=== PATIENT | female | born 1970 | race Caucasian/White ===

== ENCOUNTER 2017-07-08 14:59 | Emergency (ER) | payer MEDICAID, OTHER ==
[2017-07-08 15:40] VITALS: BP 142/68
--- NOTE | 2017-07-08 17:43 | UC ---
Loly Poon Rebecca, scribed for Otis Rosenberg MD on 07/08/17 at 1612 . Respiratory Complaint HPI - HPI Summary HPI Summary: Pt is a 46 y/o F who presents to [facility] c/o productive cough and chest congestion for 3 days. Cough brings up yellow sputum. Sx aggravated and alleviated by nothing. Additionally c/o ear pain secondary to cough and FABIAN that is currently moderate, ranked 6/10 and characterized as sharp. Denies rhinorrhea and sinus congestion. Pt reports she is prone to epiglottitis for which she has never been hospitalized and is usually treated with steroids and is unsure of the Abx. - History of Current Complaint Chief Complaint: UCRespiratory Stated Complaint: COLD,COUGH,ST Hx Obtained From: Patient Hx Last Menstrual Period: SEVERAL YEARS Onset/Duration: Lasting Days - 3 days, Still Present Severity Currently: Moderate Pain Intensity: 6 Pain Scale Used: 0-10 Numeric Character: Cough: Productive, Sputum Description: - Yellow Aggravating Factors: Nothing Alleviating Factors: Nothing Associated Signs And Symptoms: Negative: Nasal Congestion - Allergies/Home Medications Allergies/Adverse Reactions: Allergies Allergy/AdvReac Type Severity Reaction Status Date / Time Codeine AdvReac Intermediate Itching Verified 07/08/17 15:41 Home Medications: Home Medications PARoxetine HCL TAB* [Paxil TAB*] 3 tab PO DAILY 07/08/17 [History Confirmed 09/23] ValACYclovir (*) [Valtrex 500 mg (*)] 500 mg PO DAILY 07/08/17 [History Confirmed 07/08/17] PMH/Surg Hx/FS Hx/Imm Hx - Additional Past Medical History Additional PMH: NEGATIVE PMHx: DM, HTN, CAD Respiratory History: Asthma - Surgical History Surgical History: Yes Surgery Procedure, Year, and Place: T&A. Hysterectomy- d/t HPV. appendectomy Tympanostomy November 2012. gastric sleeve - Family History Known Family History: Positive: Other - Asthma (daughter) - Social History Alcohol Use: Occasionally Substance Use Type: None Smoking Status (MU): Light Every Day Tobacco Smoker Type: Cigarettes Amount Used/How Often: 1/4 ppd - Immunization History Most Recent Tetanus Shot: UTD Review of Systems Constitutional: Negative Skin: Negative Eyes: Negative ENT: Ear Ache Respiratory: Cough, Other - Chest congestion Cardiovascular: Negative Gastrointestinal: Negative Genitourinary: Negative Motor: Negative Neurovascular: Negative Musculoskeletal: Negative Neurological: Headache Psychological: Negative All Other Systems Reviewed And Are Negative: Yes - Comments Additional Review of Systems Comments: NEGATIVE: Rhinorrhea and sinus congestion Physical Exam Triage Information Reviewed: Yes Vital Signs: Initial Vital Signs Temp 98.5 F 07/08/17 15:36 Pulse 77 07/08/17 15:36 Resp 17 07/08/17 15:36 BP 142/68 07/08/17 15:36 Pulse Ox 100 07/08/17 15:36 Vital Signs Reviewed: Yes - Additional Comments General: well-appearing, no pain distress Skin: warm, color reflects adequate perfusion, dry Head: normal Eyes: EOMI, ARIANNA ENT: TM normal, some rhinorrhea, posterior pharynx is mildly erythematous Neck: supple,anterior cervical lymphadenopathy Respiratory: scattered wheezes, breath sounds present Cardiovascular: RRR Musculoskeletal: normal, strength/ROM intact Neurological: normal, sensory/motor intact, A&O x3 Psychological: affect/mood appropriate UC Diagnostic Evaluation - Laboratory O2 Sat by Pulse Oximetry: 100 Respiratory Course/Dx - Course Course Of Treatment: Pt medications reviewed. Allergies noted. - Differential Dx/Diagnosis Provider Diagnoses: BRONCHITIS/COPD EXACERBATION Discharge - Discharge Plan Condition: Stable Disposition: HOME Prescriptions: Azithromyxin ANTONIO (NF) [Z-Antonio (Zithromax) 250 mg tabs #6] 2 tab PO .TODAY, THEN 1 DAILY #6 tab Benzonatate CAP* [Tessalon 100 MG CAP*] 100 mg PO TID PRN #15 cap PRN Reason: Cough predniSONE TAB* [Deltasone TAB*] 40 mg PO DAILY #10 tab Patient Education Materials: Acute Bronchitis (ED), COPD (Chronic Obstructive Pulmonary Disease) (ED) Referrals: Haylee Kim MD [Primary Care Provider] - Additional Instructions: FOLLOW UP WITH YOUR DOCTOR. GET RECHECKED FOR ANY WORSENING OF YOUR CONDITION OR QUESTIONS OR CONCERNS. The documentation as recorded by the Loly freeman Rebecca accurately reflects the service I personally performed and the decisions made by me, Otis Rosenberg MD.
== END 2017-07-08 16:38 | disposition home or self-care (01) ==
LOC: UCEAST 14:59
DX: J44.1 Chronic obstructive pulmonary disease with (acute) exacerbation (principal); Z90.710 Acquired absence of both cervix and uterus; Z98.84 Bariatric surgery status; Z88.5 Allergy status to narcotic agent; F17.210 Nicotine dependence, cigarettes, uncomplicated
CPT/HCPCS: 99212; G0463

== ENCOUNTER 2017-09-06 11:06 | Emergency (ER) | payer OTHER ==
--- NOTE | 2017-09-06 12:52 | UC ---
Lower Extremity/Ankle HPI - HPI Summary HPI Summary: 46 year old female presents with companies of left ankle pain post fall. - History of Current Complaint Stated Complaint: ankle injury Time Seen by Provider: 09/06/17 12:52 Hx Obtained From: Patient Hx Last Menstrual Period: SEVERAL YEARS Onset/Duration: Sudden Onset Severity Initially: Moderate Severity Currently: Moderate Aggravating Factor(s): Standing - Allergies/Home Medications Allergies/Adverse Reactions: Allergies Allergy/AdvReac Type Severity Reaction Status Date / Time Codeine AdvReac Intermediate Itching Verified 09/06/17 13:16 Home Medications: Home Medications Acetaminophen [Tylenol] 1,000 mg PO Q4HR PRN 09/06/17 [History Confirmed ] Ibuprofen [Ibuprofen 200 MG] 800 mg PO BID 09/06/17 [History Confirmed 09/06/17] PMH/Surg Hx/FS Hx/Imm Hx Previously Healthy: Yes - Surgical History Surgical History: Yes Surgery Procedure, Year, and Place: T&A. Hysterectomy- d/t HPV. appendectomy Tympanostomy November 2012. gastric sleeve - Family History Known Family History: Positive: None, Other - Asthma (daughter) - Social History Alcohol Use: Occasionally Substance Use Type: None Smoking Status (MU): Light Every Day Tobacco Smoker Type: Cigarettes Amount Used/How Often: 1/4 ppd - Immunization History Most Recent Tetanus Shot: UTD Review of Systems Constitutional: Negative Skin: Negative Eyes: Negative ENT: Negative Respiratory: Negative Cardiovascular: Negative Gastrointestinal: Negative Genitourinary: Negative Motor: Negative Neurovascular: Negative Musculoskeletal: Other: - left ankle pain Neurological: Negative Psychological: Negative All Other Systems Reviewed And Are Negative: Yes Physical Exam Triage Information Reviewed: Yes Eye Exam: Normal ENT Exam: Normal Dental Exam: Normal Neck exam: Normal Neck: Positive: 1 Respiratory Exam: Normal Cardiovascular Exam: Normal Abdominal Exam: Normal Musculoskeletal: Positive: Other: - left ankle pain/sprain Neurological Exam: Normal Psychological Exam: Normal Skin Exam: Normal Lower Extremity Course/Dx - Differential Dx/Diagnosis Provider Diagnoses: left ankle sprain/pain Discharge - Discharge Plan Condition: Stable Disposition: HOME Prescriptions: Meloxicam [Mobic] 7.5 mg PO BID #30 tab Patient Education Materials: Ankle Sprain (ED) Referrals: Haylee Kim MD [Primary Care Provider] - Man New MD [Medical Doctor] -
[2017-09-06 13:16] VITALS: BP 146/84
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
== END 2017-09-06 14:20 | disposition home or self-care (01) ==
LOC: UCEAST 11:06
DX: S93.402A Sprain of unspecified ligament of left ankle, initial encounter (principal); W19.XXXA Unspecified fall, initial encounter; Y93.9 Activity, unspecified; Y92.9 Unspecified place or not applicable; Z88.5 Allergy status to narcotic agent; F17.210 Nicotine dependence, cigarettes, uncomplicated
CPT/HCPCS: 99213; G0463

== ENCOUNTER 2019-05-28 12:04 | Emergency (ER) | payer BC, MEDICAID ==
[2019-05-28 12:18] VITALS: BP 139/97
--- NOTE | 2019-05-28 12:36 | UC ---
Throat Pain/Nasal Mook HPI - HPI Summary HPI Summary: sore throat on/off for 1 month has been on 3 courses of antibiotics, amoxicillin, clinda then Augmentin--no fevers- some nasal congestion, cough - History of Current Complaint Chief Complaint: UCRespiratory Stated Complaint: THROAT PAIN Time Seen by Provider: 05/28/19 12:16 Hx Obtained From: Patient Hx Last Menstrual Period: SEVERAL YEARS ?: No Onset/Duration: Gradual Onset, Lasting Weeks, Still Present Pain Intensity: 3 Pain Scale Used: 0-10 Numeric Cough: Nonproductive Associated Signs & Symptoms: Positive: Nasal Discharge - Allergies/Home Medications Allergies/Adverse Reactions: Allergies Allergy/AdvReac Type Severity Reaction Status Date / Time codeine Allergy Itching Verified 05/28/19 12:18 Home Medications: Home Medications Atorvastatin* [Lipitor 20 MG*] 1 tab PO DAILY 05/28/19 [History Confirmed ] PMH/Surg Hx/FS Hx/Imm Hx Endocrine History: Dyslipidemia - Surgical History Surgical History: Yes Surgery Procedure, Year, and Place: T&A. Hysterectomy- d/t HPV. appendectomy Tympanostomy November 2012. gastric sleeve - Family History Known Family History: Positive: None, Other - Asthma (daughter) - Social History Occupation: Works From/At Home Lives: With Family Alcohol Use: Occasionally Substance Use Type: Prescribed Smoking Status (MU): Light Every Day Tobacco Smoker Type: Cigarettes Amount Used/How Often: 1/4 ppd Have You Smoked in the Last Year: Yes - Immunization History Most Recent Influenza Vaccination: delined Most Recent Tetanus Shot: UTD Review of Systems All Other Systems Reviewed And Are Negative: Yes Constitutional: Positive: Negative Skin: Positive: Negative Eyes: Positive: Negative ENT: Positive: Sore Throat, Nasal Discharge, Sinus Congestion Respiratory: Positive: Cough Cardiovascular: Positive: Negative Gastrointestinal: Positive: Negative Genitourinary: Positive: Negative Motor: Positive: Negative Neurovascular: Positive: Negative Musculoskeletal: Positive: Negative Neurological: Positive: Negative Psychological: Positive: Negative Is Patient Immunocompromised?: No Physical Exam Triage Information Reviewed: Yes Appearance: Well-Appearing, No Pain Distress, Well-Nourished Vital Signs: Initial Vital Signs Temp 97.8 F 05/28/19 12:15 Pulse 99 05/28/19 12:15 Resp 16 05/28/19 12:15 BP 139/97 05/28/19 12:15 Pulse Ox 99 05/28/19 12:15 Vital Signs Reviewed: Yes Eye Exam: Normal Eyes: Positive: Conjunctiva Clear ENT Exam: Normal ENT: Positive: Normal ENT inspection, Hearing grossly normal, Pharyngeal erythema, TMs normal, Other. Negative: Tonsillar swelling, Trismus, Muffled voice, Hoarse voice, Dental tenderness, Sinus tenderness Dental Exam: Normal Neck exam: Normal Neck: Positive: Supple, Nontender, No Lymphadenopathy Respiratory Exam: Normal Respiratory: Positive: Chest non-tender, Lungs clear, Normal breath sounds, No respiratory distress, No accessory muscle use Cardiovascular Exam: Normal Cardiovascular: Positive: RRR, No Murmur, Pulses Normal, Brisk Capillary Refill Musculoskeletal Exam: Normal Musculoskeletal: Positive: Strength Intact, ROM Intact, No Edema Neurological Exam: Normal Neurological: Positive: Alert, Muscle Tone Normal Psychological Exam: Normal Skin Exam: Normal Diagnostics - Laboratory Lab Results: RST (-) Throat Pain/Nasal Course/Dx - Course Course Of Treatment: will send swab for throat culture,, treat with zyrtec, flonase and phenol spray- --patient will follow with pcp this week - Differential Dx/Diagnosis Provider Diagnosis: Sore throat Discharge ED - Sign-Out/Discharge Documenting (check all that apply): Patient Departure All imaging exams completed and their final reports reviewed: No Studies - Discharge Plan Condition: Stable Disposition: HOME Prescriptions: Cetirizine* [ZyrTEC 10 MG TAB*] 10 mg PO DAILY #15 tab Fluticasone NASAL SPRAY 50MCG* [Flonase NASAL SPRAY 50MCG*] 2 spray BOTH NARES DAILY #1 btl Patient Education Materials: Benzocaine/Menthol (By mouth), Pharyngitis (ED) Referrals: Haylee Kim MD [Primary Care Provider] - 1 Week - Billing Disposition and Condition Condition: STABLE Disposition: Home
== END 2019-05-28 12:50 | disposition home or self-care (01) ==
LOC: UCEAST 12:04
DX: J02.9 Acute pharyngitis, unspecified (principal); F17.210 Nicotine dependence, cigarettes, uncomplicated; Z88.5 Allergy status to narcotic agent
CPT/HCPCS: 87070; 87077; 87651; 99212; G0463

== ENCOUNTER 2019-11-09 07:45 | Emergency (ER) | payer BC, MEDICAID ==
--- OUTSIDE RECORDS SUMMARY | 2019-11-09 07:50 | XMS REPORT | Summary of Care ---
:1970 Author Organization [facility] Address [address] [address] Care Team Providers Name Role Phone Haylee Pina MD Primary Care Provider Reason for Referral Refer to Department Only (Routine) Status Reason Specialty Diagnoses / Referred By Referred To Procedures Contact Contact Pending Review Physical Therapy Diagnoses Carpal tunnel syndrome, [place] [address] [place] [address] [address] [place] [address] Scheduling Instructions Nerve gliding and bilateral splints for carpal tunnel Reason for Visit Reason Comments Post-op Follow-up F/U 1st dorsal compartment release & cyst removal. Pain currently 09/16. Overall feels she is doing well. Encounter Details Date Type Department Care Team Description 10/13/2019 Office Visit [facility] - Gerald Peterson, Carpal tunnel Mary COLLINS syndrome, unspecified [address] [facility] [address] [place] [address] Anatoly laterality (Primary [address] Dx) [address] [phone] [id number] [phone] Allergies Active Allergy Reactions Severity Noted Date Comments Codeine Rash High 09/15/2019 Hydrocodone Hives High 09/15/2019 documented as of this encounter (statuses as of 10/13/2019) Medications Medication Sig Dispensed Refills Start Date End Date Status albuterol HFA INHALE 2 PUFFS BY 0 03/09/2019 Active (VENTOLIN) 108 (90 MOUTH FOUR TIMES A Base) MCG/ACT DAY NEEDED FOR Inhalation Aero Soln COUGH, WHEEZE ALPRAZolam (XANAX) 0.5 TAKE 1 TABLET BY 0 02/07/2019 Active MG Oral Tab MOUTH TWO TIMES DAILY NEEDED FOR ANXIETY MAXIMUM DAILY DOSE OF 2 PER DAY atorvastatin (LIPITOR) Take 20 mg by 0 10/05/2018 Active 20 MG Oral Tab mouth. Biotin 10 MG Oral Cap biotin 10,000 mcg capsule 0 Active Take by oral route. cyclobenzaprine TAKE 1/2 TO 1 0 08/25/2018 Active (FLEXERIL) 10 MG Oral TABLET BY MOUTH Tab NIGHTLY NEEDED FOR MUSCLE SPASMS MAXIMUM DAILY DOSE 2 Doxycycline TAKE 1 TABLET BY 0 08/10/2019 Active Monohydrate 100 MG MOUTH TWO TIMES Oral Tab DAILY FOR 45 DAYS hyoscyamine (LEVSIN) hyoscyamine 0 Active 0.125 MG Oral Tab sulfate 0.125 mg tablet ibuprofen (MOTRIN) 800 TAKE ONE TABLET BY 0 10/07/2018 Active MG Oral Tab MOUTH EVERY 6 HOURS UP TO THREE TIMES DAILY WITH FOOD NEEDED Levocetirizine Take 5 mg by 0 Active Dihydrochloride 5 MG mouth. Oral Tab metoprolol succinate Take 25 mg by 0 08/03/2019 Active (TOPROL XL) 25 MG Oral mouth. TABLET SR 24 HR paroxetine (PAXIL) 20 paroxetine 20 mg 0 Active MG Oral Tab tablet paroxetine (PAXIL) 40 TAKE 1 AND 1/2 0 08/11/2019 Active MG Oral Tab TABLETS BY MOUTH ONE TIME DAILY MAXIMUM DAILY DOSE 1 AND 1/2 TABLET valacyclovir (VALTREX) TAKE 1 TABLET BY 0 06/30/2019 Active 500 MG Oral Tab MOUTH EVERY DAY FOR SUPPRESSIVE THERAPY Multiple Vitamin Take by mouth. 0 Active (MULTI-VITAMIN DAILY PO) celeCOXIB (CELEBREX) Take 100 mg by 0 Active 100 MG Oral Cap mouth DAILY. methylPREDNISolone, Take as directed 21 Tab 0 10/13/2019 Active dose-angelo, (MEDROL) 4 MG Oral Tablet Therapy Pack documented as of this encounter (statuses as of 10/13/2019) Active Problems Problem Noted Date Radial styloid tenosynovitis 09/20/2019 Overview: Added automatically from request for surgery [id number] documented as of this encounter (statuses as of 10/13/2019) Social History Tobacco Use Types Packs/Day Years Used Date Never Smoker Smokeless Tobacco: Never Used Tobacco Cessation: Counseling Given: No Alcohol Use Drinks/Week oz/Week Comments Yes Alcohol Habits Answer Date Recorded How often do you have a drink containing alcohol? Monthly or less 09/21/2019 How many drinks containing alcohol do you have on a Not asked typical day when you are drinking? How often do you have six or more drinks on one Not asked occasion? Sex Assigned at Date Recorded Not on file Job Start Date Occupation Industry Not on file Not on file Not on file Travel History Travel Start Travel End No recent travel history available. documented as of this encounter Last Filed Vital Signs Vital Sign Reading Time Taken Comments Blood Pressure 150/94 10/13/2019 9:04 AM patient out of BP EST meds. Picking up today. Pulse 86 10/13/2019 9:04 AM EST Temperature - - Respiratory Rate - - Oxygen Saturation - - Inhaled Oxygen - - Concentration Weight 102.1 kg (225 lb) 10/13/2019 9:04 AM EST Height 165.1 cm (5' 5") 10/13/2019 9:04 AM EST Body Mass Index 37.44 10/13/2019 9:04 AM EST documented in this encounter Progress Notes Gerald Peterson MD - 10/13/2019 9:15 AM EST Name: Isabel Mantilla : 1970 Date of service: 10/13/2019 Chief Complaint Patient presents with Post-op Follow-up F/U 1st dorsal compartment release & cyst removal. Pain currently /10. Overall feels she is doing well. HPI: Isabel Mantilla is a 49-y.o. y/o female, who presents at the request of Gerald Peterson for evaluation. Status post right de Quervain's tenosynovitis debridement first dorsal compartment release.Patient has no longer any of the pain that she had before surgery. She does have some mild carpal tunnel on both sides PAST MEDICAL HISTORY: She has a past medical history of Asthma in adult, At high risk for tick borne illness, and High blood pressure. PAST SURGICAL HISTORY: She has a past surgical history that includes tonsillectomy; appendectomy; hysterectomy, abdominal; and pr gastroplasty, obesity,vert band. MEDICATIONS: Current Outpatient Medications: albuterol HFA (VENTOLIN) 108 (90 Base) MCG/ACT Inhalation Aero Soln, INHALE 2 PUFFS BY MOUTHFOUR TIMES A DAY NEEDED FOR COUGH, WHEEZE, Disp: , Rfl : ALPRAZolam (XANAX) 0.5 MG Oral Tab, TAKE 1 TABLET BY MOUTH TWO TIMES DAILY NEEDED FOR ANXIETY MAXIMUM DAILY DOSE OF 2 PER DAY, Disp: , Rfl: atorvastatin (LIPITOR) 20 MG Oral Tab, Take 20 mg by mouth., Disp: , Rfl : Biotin 10 MG Oral Cap, biotin 10,000 mcg capsule Take by oral route., Disp: , Rfl: celeCOXIB (CELEBREX) 100 MG Oral Cap, Take 100 mg by mouth DAILY., Disp : , Rfl: cyclobenzaprine (FLEXERIL) 10 MG Oral Tab, TAKE 1/2 TO 1 TABLET BY MOUTH NIGHTLY NEEDED FOR MUSCLE SPASMS MAXIMUM DAILY DOSE 2, Disp: , Rfl: Doxycycline Monohydrate 100 MG Oral Tab, TAKE 1 TABLET BY MOUTH TWO TIMES DAILY FOR 45 DAYS,Disp: , Rfl: hyoscyamine (LEVSIN) 0.125 MG Oral Tab, hyoscyamine sulfate 0.125 mg tablet, Disp: , Rfl: ibuprofen (MOTRIN) 800 MG Oral Tab, TAKE ONE TABLET BY MOUTH EVERY 6 HOURS UP TO THREE TIMESDAILY WITH FOOD NEEDED, Disp: , Rfl: Levocetirizine Dihydrochloride 5 MG Oral Tab, Take 5 mg by mouth., Disp : , Rfl: metoprolol succinate (TOPROL XL) 25 MG Oral TABLET SR 24 HR, Take 25 mg by mouth., Disp: , Rfl: Multiple Vitamin (MULTI-VITAMIN DAILY PO), Take by mouth., Disp: , Rfl: paroxetine (PAXIL) 20 MG Oral Tab, paroxetine 20 mg tablet, Disp: , Rfl: paroxetine (PAXIL) 40 MG Oral Tab, TAKE 1 AND 1/2 TABLETS BY MOUTH ONE TIME DAILY MAXIMUM DAILY DOSE 1 AND 1/2 TABLET, Disp: , Rfl: valacyclovir (VALTREX) 500 MG Oral Tab, TAKE 1 TABLET BY MOUTH EVERY DAY FOR SUPPRESSIVE THERAPY, Disp: , Rfl: ALLERGIES: She is allergic to codeine and hydrocodone. SOCIAL HISTORY: She reports that she has never smoked. She has never used smokeless tobacco. She reports current alcohol use. She reports that she does not use drugs. FAMILY HISTORY: family history is not on file. ROS: Nursing Notes: Senait Graves LPN 10/13/2019 9:05 AM Signed NAME: Isabel Mantilla : 1970 DATE OF SERVICE: 10/13/2019 Chief Complaint Patient presents with Post-op Follow-up F/U 1st dorsal compartment release & cyst removal. Pain currently 09/16. Overall feels she is doing well. BP (!) 150/94 Comment: patient out of BP meds. Picking up today. | Pulse 86 | Ht 5' 5" (1.651 m) |Wt 225 lb (102.1 kg) | BMI 37.44 kg/m CONSTITUTIONAL: negative. HEENT: negative. EYES: negative RESPIRATORY: negative. CARDIOVASCULAR: negative. GASTROINTESTINAL: negative. GENITOURINARY: negative. INTEGUMENT/BREAST: negative. HEMATOLOGIC/LYMPHATIC: negative. MUSCULOSKELETAL: Negative. NEUROLOGICAL: negative. BEHAVIORAL/PSYCH: negative. ENDOCRINE: negative. ALLERGIC/IMMUNOLOGIC: Negative. Body mass index is 37.44 kg/m. - Patient Educated. AUTHOR: Senait Graves LPN 10/13/2019 09:05 I reviewed the above and have made changes as appropriate. Physical Exam: Vitals: BP 150/94 Pulse 86 Ht 5' 5" (1.651 m) Wt 225 lb (102.1 kg) BMI 37.44 kg/m2 Gen: NAD, A&Ox3 SKIN/PALPATION: Normal rugal patterns, sweat, turgor, and temperature. Cuticles , nails, nail curvature, and pulp bulk are essentially normal in appearance. No skin changes. SWELLING: none WARMTH: no warmth DEFORMITY: no gross deformity or malalignment NEUROLOGICAL EXAM: Sensation intact to light touch. VASCULAR EXAM: Capillary refill is <2 seconds. Suture line is intact sutures are in place. Sensation is intact. Provocative test for carpal tunnel are positive on both sides Imaging & Tests: Assessment: ICD-9-CM ICD-10-CM 1. Carpal tunnel syndrome, unspecified laterality 354.0 G56.00 Status post de Quervain's release. Bilateral carpal tunnel mild Plan & Discussion: --Sutures out today Medrol Dosepak Therapy for nerve gliding exercises I will see her back in 4 weeks to evaluate her carpal tunnel. Gerald Peterson MD Hand Surgery 10/13/2019 documented in this encounter Plan of Treatment Name Type Priority Associated Diagnoses Order Schedule REFER TO PHYSICAL Referral Routine Carpal tunnel syndrome, 99 Occurrences starting THERAPY / REHAB unspecified laterality 10/13/2019 until 10/13/2020 Health Maintenance Due Date Last Done Comments DTaP/Tdap/Td Vaccines (1 - Tdap) 1980 DEPRESSION SCREENING 1981 HIV SCREENING 1984 DIABETES SCREENING 1987 PAP SMEAR 1990 MAMMOGRAM (SCREENING) 2009 INFLUENZA VACCINE (#1) 2019 Colonoscopy 2019 ZOSTER IMMUNIZATION SERIES (1 of 2019 2) LIPID DISORDER SCREENING 09/15/2024 09/15/2019 HEPATITIS A IMMUNIZATION SERIES Aged Out No longer eligible based on patient's age to complete this topic HPV IMMUNIZATION SERIES Aged Out No longer eligible based on patient's age to complete this topic MENINGOCOCCAL VACCINE IMM Aged Out No longer eligible based on patient's age to complete this topic PNEUMOCOCCAL 0-64 YRS Aged Out No longer eligible based on patient's age to complete this topic documented as of this encounter Results Not on filedocumented in this encounter Visit Diagnoses Diagnosis Carpal tunnel syndrome, unspecified laterality documented in this encounter Insurance Payer Benefit Plan / Subscriber ID Effective Dates Phone Address Type Group [facility] xxxxxxxxx 2019-Present [place] xxxxxxxx 2019-Present Medicaid [place] MED[place] documented as of this encounter
--- OUTSIDE RECORDS SUMMARY | 2019-11-09 07:50 | XMS REPORT | Continuity of Care Document ---
:1970 External Reference #:[id number] Author Name Samaria Dawson RN MS [employer] CLERK Address [address] [place] [address] Problems Active Problems Provider Date Obstructive sleep apnea syndrome Franky Herzog PA Onset: 09/16/2019 Note: on CPAP per pulm Benign essential hypertension Onset: 02/11/2008 Mild recurrent major depression Madisyn Andrade MD Onset: 03/02/2013 Mixed hyperlipidemia Madisyn Andrade MD Onset: 03/02/2013 Myalgia & Myositis Unspecified Madisyn Andrade MD Onset: 03/02/2013 Obesity Madisyn Andrade MD Onset: 03/02/2013 Abnormal vaginal Papanicolaou smear Franky Herzog PA Onset: 11/29/2018 Note: s/p KENIA BSO due to cervical dysplasia and endometriosis ~2003 Hepatitis C screening Franky Herzog PA Onset: 03/22/2019 Note: Neg 03/2019 HIV negative Franky Herzog PA Onset: 03/22/2019 Note: 03/2019 Human ehrlichiosis Franky Herzog PA Onset: 08/01/2019 Note: IgG+ 07/2019 -- Tx. Social History Type Date Description Comments Sex Unknown Tobacco Use Start: Unknown End: Former Cigarette Smoker X 16 years, quitted Unknown 1/2 Pack Daily in 2013 ETOH Use Occasionally consumes alcohol Recreational Drug Use Denies Drug Use Tobacco Use Start: Unknown Patient is a current smoker, smokes every day Smoking Status Reviewed: 09/23/19 Patient is a current smoker, smokes every day Allergies, Adverse Reactions, Alerts Active Allergies Reaction Severity Comments Date Codeine ITCHING 09/09/2011 Medications Active Medications SIG Qnty Indications Ordering Date Provider Metoprolol Succinate Take 1 Tablet By 30tabs I10 [facility], 06/06/2019 ER Mouth Every Day Haylee Rodriguez MD 25mg Tablets ER 24HR Levocetirizine 1 by mouth every 90tabs J30.9 [facility], 05/30/2019 Dihydrochloride night Haylee Rodriguez MD 5mg Tablets Valacyclovir HCL take 1 tablet by 90tabs B00.1 [facility], 03/28/2019 500mg mouth every day for Haylee Rodriguez MD Tablets suppressive therapy Atorvastatin Calcium 1 by mouth every 90tabs E78.2 [facility], 10/04/2018 day Haylee Rodriguez MD 20mg Tablets Triamcinolone 1 sprays each 16.500gm J30.9 [facility], 08/23/2018 Acetonide nostril twice a day Haylee Rodriguez MD 55mcg/Act Aerosol Cyclobenzaprine HCL Take 1/2 - 1 Tablet 60tabs G89.4 [facility], 01/07/2018 By Mouth Up To Two Haylee Rodriguez MD 10mg Tablets Times Daily as Needed For Muscle Spasms, Maximum Daily Dose Of 2 Per Day TENS G89.4 [facility], 08/13/2015 Haylee Rodriguez MD Ventolin HFA 2 p four times a 18gm J20.9 [facility], 07/11/2014 day as needed Haylee Rodriguez MD 108(90Base) mcg/Act cough, wheeze Aerosol Epipen 2-Antonio 1 shot 1units T78.40xA [facility], 03/02/2013 intramuscular to Haylee Rodriguez MD 0.3mg/0.3ML Solution thigh in case of Auto-Inject analphylasis as needed Celebrex 1 by mouth twice a Unknown 100mg Capsules day Alprazolam prn F33.0 Unknown 0.5mg Tablets Paroxetine HCL 1.5 by mouth every F33.0 Unknown 40mg day Tablets History Medications Doxycycline 1 by mouth twice 90tabs [facility], 08/01/2019 - Monohydrate a day for 45day Haylee Rodriguez MD 09/15/2019 100mg Tablets Vitamin D3 1 by mouth every 90tabs [facility], 07/28/2019 - 5000Unit day Haylee Rodriguez MD 09/23/2019 Tablets Pregabalin 1 by mouth twice 60caps G89.4 [facility], 07/27/2019 - 25mg a day Haylee Rodriguez MD 09/23/2019 Capsules Chantix Starting take as packet 1pack F17.210 [facility], 05/30/2019 - Month Antonio directs. [then Haylee Rodriguez MD 06/29/2019 0.5mg X 11 to continuing & 1 mg X 42 Tablets month pack] Chantix Continuing 1 tablet per oral 60tabs F17.210 Silvana, 05/30/2019 - Month Antonio twice daily Haylee Rodriguez MD 09/23/2019 1mg Tablets Amoxicillin/Clavulan 1 by mouth every 20tabs W55.01x Silvana, 05/11/2019 - ate Potassium 12 hours A Haylee Rodriguez MD 05/21/2019 875-125mg Tablets Amlodipine Take 1 Capsule By PatriciacapFranky Beal, 03/31/2019 - Besylate/Benazepril Mouth Every Day PA 03/31/2019 Hydrochloride 5-20mg Capsules Nicotine Mini 1 po q 2hrs prn 162units F17.210 Silvana, 03/28/2019 - 4mg cravings Haylee Rodriguez MD 05/30/2019 Lozenges Immunizations CPT Code Status Date Vaccine Lot # [id number] Given 06/06/2019 Influenza Vac, Quadrivalent, Split, 0.5mL Dosage, [id number] Im Use 44490 Given 05/11/2019 Tdap (Adacel) Ages 7 And Above Only [id number] 81788 Given 06/23/2018 Influenza Vac, Quadrivalent, Split, 0.5mL Dosage, [id number] Im Use 41478 Given 05/16/2016 Influenza Vac, Quadrivalent, Split, 0.5mL Dosage, [id number] Im Use [id number] Given 06/09/2014 Fluzone Trivalent Immunization [id number] Given 07/22/2011 Tdap (Adacel) Ages 7 And Above Only [id number] 83663 Given 07/18/2008 Afluria Or Fluvirin Flu Vac Intramuscular [id number] Vital Signs Date Vital Result Comment 09/23/2019 10:58am Weight 231.00 lb Heart Rate 70 /min BP Systolic 124 mmHg BP Diastolic 82 mmHg Height 65.5 inches 5'5.50" BMI (Body Mass Index) 37.9 kg/m2 08/26/2019 1:06pm Weight 225.00 lb Heart Rate 82 /min BP Systolic 135 mmHg BP Diastolic 76 mmHg Height 65.5 inches 5'5.50" BMI (Body Mass Index) 36.9 kg/m2 Results Test Acquired Date Facility Test Result H/L Range Note Laboratory test 07/27/2019 [facility] Vitamin D 25 32 ng/mL 30-100 1 finding Hydroxy Babesia M AB Igg Igm 07/27/2019 [facility] Babesia Microti < 1:16 2 -RL Igg Babesia Microti Igm <1:20 3 Hga Antibodies,IgG and IgM -RL 07/27/2019 [facility] Hga AB Igg <1:80 4 Hga AB Igm < 1:16 5 E Chaffeensis Abs 07/27/2019 [facility] E Chaffeensis Igg 1:128 6 E Chaffeensis Igm < 1:16 7 Z#Lyme Confirmation Abs Blood 07/27/2019 [facility] Lyme Igg B Matthieu Negative 8 Lyme Igm B Matthieu Negative 9 Comprehensive Met Panel-[facility] 06/06/2019 [facility] Sodium 145 mmol/L 135- 146 10 Potassium 4.6 mmol/L 3.5-5.2 Chloride# 106 mmol/L 97-110 11 Carbon Dioxide 28 mmol/L 24-34 Calcium 9.7 mg/dL 8.5-10.5 12 Glucose 70 mg/dL 70-105 BUN 15 mg/dL 6-26 Creatinine 0.8 mg/dL 0.5-1.4 Total Protein 6.7 g/dL 6.0-8.0 Albumin 4.4 g/dL 3.6-4.9 Globulin 2.3 g/dL 2.0-3.5 A/G Ratio 1.9 Ratio 1.0-2.2 Total Bilirubin 0.4 mg/dL 0.1-1.3 Alkaline Phosphatase 94 U/L 24-140 Alt 30 U/L 3-42 Ast 23 U/L 8-42 Anion Gap 11 mmol/L 5-15 13 Female Egfr 84 >60 14 Male Egfr 103 >60 15 Lipid 06/06/2019 [facility] Cholesterol 181 mg/dL 50-199 Triglycerides 204 mg/dL High 30-200 HDL 62 mg/dL 35-85 16 Chol/ HDL Ratio 2.9 ratio Low 3.7-5.6 VLDL 41 mg/dL High 2-29 LDL (Calc) 78 mg/dL 20-99 17 Laboratory test finding 06/06/2019 [facility] Magnesium 2.1 mg/dL 1.5-2.7 TSH 0.78 uIU/mL 0.35-4.94 HIV Combo By 06/06/2019 [facility] [employer] HIV NON REACTIVE Non Reactive Eia Combo Laboratory test 05/28/2019 [facility] Throat Culture SEE RESULT 18, 19 finding BELOW Laboratory test 05/28/2019 [facility] Rapid Strep Negative Negative 20 finding Molecular 1 Clinical Guidelines for recommended serum 25(OH)Vitamin D Deficient at less than 20 ng/mL Insufficient at 20 to <30 ng/mL Sufficient at 30-100 ng/mL Toxicity at greater than 100 ng/mL 2 < 1:16 Reference range: < 1:16 INTERPRETIVE INFORMATION: Babesia microti Antibody, IgG Less than 1:16 ........ Negative - No significant level of detectable Babesia IgG antibodies. 1:16 .................. Equivocal - Repeat testing in 10-14 days may be helpful. Greater than 1:16 ..... Positive - IgG antibodies to Babesia detected which may indicate a current or previous infection. Test developed and characteristics determined by [facility]. See Compliance Statement A: [email or web address] [employer]/CS 3 <1:20 Reference range: <1:20 INTERPRETIVE INFORMATION: Babesia microti Antibody, IgM Less than 1:20 ........ Negative - No significant level of detectable Babesia IgM antibodies. 1:20 .................. Equivocal - Repeat testing in 10-14 days may be helpful. Greater than 1:20 ..... Positive - IgM antibodies to Babesia detected which may indicate a current or recent infection. Test developed and characteristics determined by [facility]. See Compliance Statement A: [facility]/CS Performed by [facility], [address] [place] [address] [email or web address] [employer], Ortiz Lynn MD, Lab. Director Unless otherwise specified, testing performed by [facility] [address] [place] [id number] 4 <1:80 Reference range: <1:80 INTERPRETIVE INFORMATION: A. phagocytophilum (HGA) Antibody, IgG Less than 1:80 - No significant level of IgG antibodies to A. phagocytophilum detected. Greater than or equal to 1:80 - Suggestive of a recent or past infection with A. phagocytophilum. Test developed and characteristics determined by [facility]. See Compliance Statement B: [facility] 5 < 1:16 Reference range: < 1:16 INTERPRETIVE INFORMATION: A. phagocytophilum (HGA) Antibody, IgM Less than 1:16 - No significant level of IgM antibodies to A. phagocytophilum detected. Greater than or equal to 1:16 - Suggestive of a current or recent infection with A. phagocytophilum. Test developed and characteristics determined by [facility]. See Compliance Statement B: [facility] Performed by [facility], [address] [place] [id number] [email or web address] [employer], Ortiz Lynn MD, Lab. Director Unless otherwise specified, testing performed by [facility] [address] [place] [id number] 6 1:128 Reference range: <1:64 INTERPRETIVE INFORMATION: Ehrlichia Chaffeensis IgG Ab Less than 1:64 ....... Negative: No significant level of Ehrlichia chaffeensis IgG antibody detected. 1:64-1:128 ........... Equivocal: Questionable presence of Ehrlichia chaffeensis IgG antibody detected. Repeat testing in 10-14 days may be helpful. 1:256 or greater ..... Positive: Presence of IgG antibody to Ehrlichia chaffeensis detected, suggestive of current or past infection. Seroconversion between acute and convalescent sera is considered strong evidence of recent infection. The best evidence for infection is a significant change (fourfold difference in titer) on two appropriately timed specimens, where both tests are done in the same laboratory at the same time. Test developed and characteristics determined by [facility]. See Compliance Statement B: [facility]/[facility] 7 < 1:16 Reference range: < 1:16 INTERPRETIVE INFORMATION: Ehrlichia Chaffeensis IgM Ab Less than 1:16 ....... Negative - No significant level of Ehrlichia chaffeensis IgM antibody detected. 1:16 or greater ...... Positive - Presence of IgM antibody to Ehrlichia chaffeensis detected, suggestive of current or recent infection. While the presence of IgM antibodies suggest current or recent infection, low levels of IgM antibodies may occasionally persist for more than 12 months post-infection. A single IgM result should be interpreted with caution. Test developed and characteristics determined by [facility]. See Compliance Statement B: [facility]/ Performed by [facility], [address] [facility] [place] [address] [email or web address] [employer], Ortiz Lynn MD, Lab. Director Unless otherwise specified, testing performed by [facility] [place] [address] 8 Negative Reference range: Negative Band(s) present: 41 kDa (Insufficient number of bands for positive result) INTERPRETIVE INFORMATION: B. burgdorferi IgG Immunoblot For this assay, a positive result is reported when any 5 or more of the following 10 bands are present: 18, 23, 28, 30, 39, 41, 45, 58, 66, or 93 kDa. All other banding patterns are reported as negative. 9 Negative Reference range: Negative Band(s) present: NONE (Insufficient number of bands for positive result) INTERPRETIVE INFORMATION: B. burgdorferi Antibody IgM Immunoblot For this assay, a positive result is reported when any 2 or more of the following bands are present: 23, 39, or 41 kDa. All other banding patterns are reported as negative. Performed by [facility], [address] [facility] [place] [address] [email or web address], Ortiz Lynn MD, Lab. Director Unless otherwise specified, testing performed by [facility] [place] [address] 10 Updated reference range on new analyzer 11 Updated reference range on new analyzer 12 Updated reference range 01-05-2019 13 Updated Reference Range 14 Concerning GFR Guidelines for Americans: Normal function or mild renal disease, if clinically at risk: >/= 60 mL/min Moderately decreased: 30-59 Severely decreased: 15-29 Renal failure: <15 There is reduced accuracy above 60ml/min/1.73 m squared, but the numeric value may be clinically useful in the near 60 range 15 Concerning GFR Guidelines: Normal function or mild renal disease, if clinically at risk: >/= 60 mL/min Moderately decreased: 30-59 Severely decreased: 15-29 Renal failure: <15 There is reduced accuracy above 60ml/min/1.73 m squared, but the numeric value may be clinically useful in the near 60 range Glomerular Filtration Rate (GFR) is estimated based on the CKD-EPI equation, which assumes a steady state for creatinine as recommended by the National Kidney Disease Education Program in conjunction with the National Institutes of Health and the National Kidney Foundation. Clinical conditions in which it may be necessary to measure GFR by using clearance methods include extremes of age and body size, severe malnutrition or obesity, diseases of skeletal muscle, paraplegia or quadriplegia, vegetarian diet, rapidly changing kidney function, and calculation of the dose of potentially toxic drugs that are excreted by the kidneys. 16 Per NCEP ATP III Guidelines: Results lower than 40 mg/dL are suggestive of increased risk for coronary artery disease. Results > or = to 60 mg/dL are considered a negative risk factor. 17 Per NCEP ATP III Guidelines: Normal Population <130 Patients with medical conditions: CHD/DM Optimal: <100 Borderline high: 130-159 High: 160-189 Very high: >189 18 [id number] SEE RESULT BELOW Name: ISABEL MANTILLA : [address]: Terrell العراقي MD Acct: [id number] Unit: [id number] AGE: 48 Location: [facility] Re05/28/19 SEX: F Status: DEP ER SPEC: [id number] JEFRY: 05/28/19-[address]: Kamille Cruz NP REQ: [id number] RECD: 05/28/19-1410 STATUS: JEISON BENNETT DR: Terrell Kim MD _ SOURCE: THROAT SPDESC: ORDERED: Throat Culture COMMENTS: [id number] Procedure Result Reported Site Throat Culture Final 05/30/19- 1454 ML Organism 1 NORMAL TAMMY Quantity 3+ Throat cultures are clinically indicated to detect the presence of group A strep, arcanobacterium and yeast. In certain cases, predominating organisms will be reported. * [facility] - Main Lab . END OF REPORT DEPARTMENT OF PATHOLOGY, [address] [place] [address] Adi Padilla M.D. Director [facility] # [id number] [address] Helper: [id number] Procedures Date Code Description Status 09/23/2019 44401 Electrocardiogram Complete Completed 07/14/2016 [id number] Mammogram Completed 03/11/2011 [id number] Bone Mineral Density Test Completed 03/06/2009 [id number] Mammogram Completed Medical Devices Description No Information Available Encounters Type Date Location Provider Dx Diagnosis Office Visit 08/26/2019 Samaria Best, E66.9 Obesity, unspecified 1:00p RN MS [employer] M67.431 Ganglion, RIGHT wrist Z68.36 Body mass index (BMI) 36.0-36.9, adult Office Visit 07/27/2019 8:00a Franky Donahue PA I10 Essential ( primary) hypertension E78.2 Mixed hyperlipidemia F33.0 Major depressive disorder, recurrent, mild F90.0 Attn-defct hyperactivity disorder, 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 E55.9 Vitamin D deficiency, unspecified F17.210 Nicotine dependence, cigarettes, uncomplicated M79.7 Fibromyalgia M54.2 Cervicalgia M54.6 Pain in thoracic spine M54.17 Radiculopathy, lumbosacral region G89.4 Chronic pain syndrome J30.9 Allergic rhinitis, unspecified R53.83 Other fatigue Z68.36 Body mass index (BMI) 36.0-36.9, adult Office Visit 06/20/2019 8:00a Franky Donahue PA M79.7 Fibromyalgia M54.2 Cervicalgia M54.6 Pain in thoracic spine M54.17 Radiculopathy, lumbosacral region G89.4 Chronic pain syndrome Z68.35 Body mass index (BMI) 35.0-35.9, adult Office Visit 06/06/2019 8:00a Franky Donahue PA I10 Essential ( primary) hypertension E78.2 Mixed hyperlipidemia G89.4 Chronic pain syndrome M79.7 Fibromyalgia M54.6 Pain in thoracic spine M54.17 Radiculopathy, lumbosacral region F33.0 Major depressive disorder, recurrent, mild F90.0 Attn-defct hyperactivity disorder, 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 E55.9 Vitamin D deficiency, unspecified F17.210 Nicotine dependence, cigarettes, uncomplicated E66.9 Obesity, unspecified Z68.34 Body mass index (BMI) 34.0-34.9, adult Office Visit 05/30/2019 7:45a Franky Donahue PA J06.9 Acute upper respiratory infection, unspecified J30.9 Allergic rhinitis, unspecified F17.210 Nicotine dependence, cigarettes, uncomplicated Z68.34 Body mass index (BMI) 34.0-34.9, adult Office Visit 05/11/2019 10:40a Franky Donahue PA W55.01xA Bitten by cat, initial encounter Z23 Encounter for immunization S61.250A Open bite of RIGHT index finger w/o damage to nail, init Z68.34 Body mass index (BMI) 34.0-34.9, adult Office Visit 03/28/2019 8:00a Franky Donahue PA I10 Essential ( primary) hypertension E78.2 Mixed hyperlipidemia F17.210 Nicotine dependence, cigarettes, uncomplicated M79.7 Fibromyalgia M54.6 Pain in thoracic spine M54.17 Radiculopathy, lumbosacral region G89.4 Chronic pain syndrome F33.0 Major depressive disorder, recurrent, mild E55.9 Vitamin D deficiency, unspecified J30.9 Allergic rhinitis, unspecified F90.0 Attn-defct hyperactivity disorder, 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 E66.9 Obesity, unspecified Z68.35 Body mass index (BMI) 35.0-35.9, adult Assessments Date Code Description Provider 09/23/2019 M67.431 Ganglion, RIGHT wrist Samaria Dawson, RASHI [facility] 09/23/2019 I10 Essential (primary) hypertension Samaria Dawson RN [facility] 09/23/2019 E78.2 Mixed hyperlipidemia Samaria Dawson RN [facility] 09/23/2019 F33.0 Major depressive disorder, recurrent, Samaria Dawson, RASHI [facility] mild 09/23/2019 E66.9 Obesity, unspecified Samaria Dawson, RN [facility] 09/23/2019 Z68.37 Body mass index (BMI) 37.0-37.9, Samaria Dawson RN [facility] adult 08/26/2019 E66.9 Obesity, unspecified Samaria Dawson, RASHI [facility] 08/26/2019 M67.431 Ganglion, RIGHT wrist Samaria Dawson, RASHI [facility] 08/26/2019 Z68.36 Body mass index (BMI) 36.0-36.9, Samaria Dawson, RASHI [facility] adult 07/27/2019 I10 Essential (primary) hypertension Franky Herzog PA 07/27/2019 E78.2 Mixed hyperlipidemia Franky Herzog PA 07/27/2019 F33.0 Major depressive disorder, recurrent, Franky Herzog PA mild 07/27/2019 F90.0 Attention-deficit hyperactivity Franky Herzog PA disorder, predominantly inat 07/27/2019 B00.1 Herpesviral vesicular dermatitis BiterFranky PA 07/27/2019 E55.9 Vitamin D deficiency, unspecified Franky Herzog PA 07/27/2019 F17.210 Nicotine dependence, cigarettes, Franky Herzog PA uncomplicated 07/27/2019 M54.17 Radiculopathy, lumbosacral region BiterFranky PA 07/27/2019 M54.6 Pain in thoracic spine BiterFranky PA 07/27/2019 M54.2 Cervicalgia SamrFranky PA 07/27/2019 M79.7 Fibromyalgia Franky Herzog PA 07/27/2019 G89.4 Chronic pain syndrome Franky Herzog PA 07/27/2019 J30.9 Allergic rhinitis, unspecified Franky Herzog PA 07/27/2019 R53.83 Other fatigue Franky Herzog PA 07/27/2019 Z68.36 Body mass index (BMI) 36.0-36.9, Franky Herzog PA adult 07/27/2019 R53.83 Other fatigue [facility] 07/27/2019 E55.9 Vitamin D deficiency, unspecified [facility] 06/20/2019 M54.17 Radiculopathy, lumbosacral region BiterFranky PA 06/20/2019 M54.6 Pain in thoracic spine Franky Herzog PA 06/20/2019 M54.2 Cervicalgia Franky Herzog PA 06/20/2019 M79.7 Fibromyalgia Franky Herzog PA 06/20/2019 G89.4 Chronic pain syndrome SamrFranky PA 06/20/2019 Z68.35 Body mass index (BMI) 35.0-35.9, Franky Herzog PA adult 06/06/2019 Z11.4 Encounter for screening for human [facility] immunodeficiency virus [HIV] 06/06/2019 I10 Essential (primary) hypertension Franky Herzog PA 06/06/2019 E78.2 Mixed hyperlipidemia [facility] 06/06/2019 E78.2 Mixed hyperlipidemia Franky Herzog PA 06/06/2019 G89.4 Chronic pain syndrome Franky Herzog PA 06/06/2019 M54.17 Radiculopathy, lumbosacral region Franky Herzog PA 06/06/2019 M54.6 Pain in thoracic spine Franky Herzog PA 06/06/2019 M79.7 Fibromyalgia Franky Herzog PA 06/06/2019 E66.9 Obesity, unspecified [facility] 06/06/2019 B00.1 Herpesviral vesicular dermatitis [facility] 06/06/2019 F33.0 Major depressive disorder, recurrent, Franky Herzog PA mild 06/06/2019 F90.0 Attention-deficit hyperactivity Franky Herzog PA disorder, predominantly inat 06/06/2019 B00.1 Herpesviral vesicular dermatitis Franky Herzog PA 06/06/2019 E55.9 Vitamin D deficiency, unspecified Franky Herzog PA 06/06/2019 F17.210 Nicotine dependence, cigarettes, Franky Herzog PA uncomplicated 06/06/2019 E66.9 Obesity, unspecified Franky Herzog PA 06/06/2019 Z68.34 Body mass index (BMI) 34.0-34.9, Franky Herzog PA adult 05/30/2019 J06.9 Acute upper respiratory infection, Franky Herzog PA unspecified 05/30/2019 J30.9 Allergic rhinitis, unspecified Franky Herzog PA 05/30/2019 F17.210 Nicotine dependence, cigarettes, Franky Herzog PA uncomplicated 05/30/2019 Z68.34 Body mass index (BMI) 34.0-34.9, Franky Herzog PA adult 05/11/2019 W55.01xA Bitten by cat, initial encounter Franky Herzog PA 05/11/2019 Z23 Encounter for immunization Franky Herzog PA 05/11/2019 S61.250A Open bite of RIGHT index finger Franky Herzog PA without damage to nail, initial encounter 05/11/2019 Z68.34 Body mass index (BMI) 34.0-34.9, Franky Herzog PA adult 03/28/2019 I10 Essential (primary) hypertension Franky Herzog PA 03/28/2019 E78.2 Mixed hyperlipidemia Franky Herzog PA 03/28/2019 F17.210 Nicotine dependence, cigarettes, Franky Herzog PA uncomplicated 03/28/2019 M54.17 Radiculopathy, lumbosacral region Franky Herzog PA 03/28/2019 M54.6 Pain in thoracic spine Franky Herzog PA 03/28/2019 M79.7 Fibromyalgia Franky Herzog PA 03/28/2019 G89.4 Chronic pain syndrome Franky Herzog PA 03/28/2019 F33.0 Major depressive disorder, recurrent, Franky Herzog PA mild 03/28/2019 E55.9 Vitamin D deficiency, unspecified Franky Herzog PA 03/28/2019 J30.9 Allergic rhinitis, unspecified Franky Herzog PA 03/28/2019 F90.0 Attention-deficit hyperactivity Franky Herzog PA disorder, predominantly inat 03/28/2019 B00.1 Herpesviral vesicular dermatitis Franky Herzog PA 03/28/2019 E66.9 Obesity, unspecified Franky Herzog PA 03/28/2019 Z68.35 Body mass index (BMI) 35.0-35.9, Franky Herzog PA adult Plan of Treatment Future Appointment(s):10/27/2019 7:30 am - Franky Herzog PA at [id number] - Samaria Dawson, RN MS FNPM67.431 Ganglion, RIGHT [id number] Essential ( primary) gjhvsvglifumV32.2 Mixed fnnfbvfqhsybfiD37.0 Major depressive disorder, recurrent, mildE66.9 Obesity, hkotrrovyucJ60.37 Body mass index (BMI) 37.0-37.9 , adult Functional Status Description No Information Available Mental Status Description No Information Available Referrals Refer to Dr Reason for Referral Status Appt Date [facility] GANGLION CYST RIGHT Scheduled 2019 Office WRIST, SMALL BUT PT IS SYMPTOMATIC, NUMBNESS IN THUMB AND PAIN W ROTATION AND FLEXION FIRST AVAILABLE 08/19-SCHEDULED WITH YOHANA AND ALEXSANDER ALANIS-AA [address] [facility] [id number] [phone] Tai Smith DC Whole back pain, ?Fibromyalgia vs OA Patient Declined 06/27 DR. SMITH OFFICE LMOVM THAT THEY HAVE CALLED PT SEVERAL TIMES TO SCHEDULE WITH NO CALL BACK.. [address] [place] [address] [phone]
--- OUTSIDE RECORDS SUMMARY | 2019-11-09 07:50 | XMS REPORT | Continuity of Care Document ---
:1970 External Reference #:[id number] Author Name Carmita Sylvester NP (transmitted by agent of provider Nuria Webster) Address [address], [address] [place] [address] Care Team Providers Name Role Phone Haylee Pina MD - Internal Care Team Information Business Representative Medicine Problems Active Problems Provider Date Multiple joint pain Rolan Madrigal M.D. Onset: 11/15/2012 Localized, primary osteoarthritis of the Rolan Madrigal M.D. Onset: 2012 lower leg Skin sensation disturbance Raissa Fried M.D. Onset: 10/19/2015 Chronic pain syndrome Raissa Fried M.D. Onset: 10/19/2015 Social History Type Date Description Comments Sex Unknown ETOH Use Occasionally consumes alcohol Tobacco Use Start: Unknown End: Patient is a former smoker Unknown Recreational Drug Use Denies Drug Use Smoking Status Reviewed: 09/14/19 Patient is a former smoker Exercise Type/Frequency Exercises sporadically Allergies, Adverse Reactions, Alerts Active Allergies Reaction Severity Comments Date Codeine 11/15/2012 Hydrocodone Itching 06/01/2019 Inactive Allergies Penicillins 11/15/2012 Sulfa Antibiotics 11/15/2012 Medications Active Medications SIG Qnty Indications Ordering Date Provider Mandibular Advancement please fabricate 1units G47.33 Carmita 09/14/2019 Device mandibular BHARATH Sylvester Device advance device mild sleep apnea Lyrica take one 45caps Ariel Olson, 07/18/2019 75mg Capsules capsule/tablet M.D. daily by mouth for 1 week then 2 tabs daily ongoing Aspercreme Lidocaine apply daily to 90units Ariel Olson, 06/23/2019 4% help myofascial M.D. Patches pain Valacyclovir HCL 1 po qd Unknown 500mg Tablets Cyclobenzaprine HCL Take 1/2 - 1 Unknown 10mg Tablet By Mouth Tablets Up To Two Times Daily as Needed For Muscle Spasms, Maximum Daily Dose Of 2 Per Day Atorvastatin Calcium Take 1 Tablet By Unknown 20mg Mouth Every Day Tablets Ibuprofen Take One Tablet Unknown 800mg Tablets By Mouth Every 6 Hours Up To 3 Times Daily With Food as Needed Multivitamin Adult 1 by mouth every Unknown day Tablets Metoprolol Succinate 1 by mouth every Unknown ER day 25mg Tablets ER 24HR Chantix Starting Month as directed Unknown Antonio 0.5mg X 11 & 1 mg X 42 Tablets Biotin 2 caps by mouth Unknown 1mg Capsules every day Paroxetine HCL 1 by mouth every Unknown 20mg day along with a Tablets 40 mg Paroxetine HCL 1 tab a day, Unknown 40mg along with a 20 Tablets mg tab Doxycycline Take 1 Tablet By Unknown Monohydrate Mouth Two Times 100mg Tablets Daily For 45 Days Levocetirizine Take 1 Tablet By Unknown Dihydrochloride Mouth Nightly 5mg Tablets History Medications Lidoderm 1 apply to affected 30units Ariel Whitney, 06/01/2019 - 5% Patches area 12 hours on, M.D. 06/23/2019 12 hours off to upper back Immunizations Description No Information Available Vital Signs Date Vital Result Comment 09/14/2019 12:54pm Height 66 inches Weight 220.00 lb Heart Rate 82 /min BP Systolic 100 mmHg BP Diastolic 64 mmHg O2 % BldC Oximetry 95 % BMI (Body Mass Index) 35.5 kg/m2 08/10/2019 2:53pm Height 66 inches 5'6" Weight 215.00 lb Heart Rate 74 /min BP Systolic 130 mmHg BP Diastolic 86 mmHg BMI (Body Mass Index) 34.7 kg/m2 Results Test Acquired Date Facility Test Result H/L Range Note Laboratory test 08/10/2019 [facility] Blood Urea 23 mg/dL Normal 6-[address] [place] [address] [phone] Creatinine 08/10/2019 [facility] Creatinine 0.93 mg/dL Normal 0.51-0.[address] [place] [address] [phone] Egfr Non- 64.1 >60 Egfr 77.5 >60 1 Connective Tissue 06/01/2019 [facility] Anti-Nuclear Antibody 0.4 U [address] [place] [address] [phone] Cyclic Citrullinated Peptide <15.6 U 3 Interpretation See Comment 4 Laboratory test 06/01/2019 [facility] Erythrocyte Sed 29 mm/Hr High 0-[address] [place] [address] [phone] C Reactive Protein 1.82 mg/L Normal <8.01 Rheumatoid Factor 12 IU/mL Normal <15 TSH (Thyroid Stim Horm) 0.70 mcIU/mL Normal 0.34-5.60 Creatine Kinase(CK) 85 U/L Normal 10-223 1 Because ethnic data is not always readily available, this report includes an eGFR for both -Americans and non- Americans. The National Kidney Disease Education Program (NKDEP) does not endorse the use of the MDRD equation for patients that are not between the ages of 18 and 70, are , have extremes of body size, muscle mass, or nutritional status, or are non- or non-. According to the National Kidney Foundation, irrespective of diagnosis, the stage of the disease is based on the level of kidney function: Stage Description GFR(mL/min/1.73 m(2)) 1 Kidney damage with normal or decreased GFR 90 2 Kidney damage with mild decrease in GFR 60-89 3 Moderate decrease in GFR 30-59 4 Severe decrease in GFR 15-29 5 Kidney failure <15 (or dialysis) 2 REFERENCE VALUE <=1.0 (Negative) 3 REFERENCE VALUE <20.0 (Negative) 4 Tests for antibodies to dsDNA and FRANCIS antigens are not performed automatically unless the ELOINA result is > or = 3.0 U. Studies performed at [facility] indicate that positive ELOINA results <3.0 U are rarely accompanied by positive second order tests. Test Performed by: [facility] [address] [place] [address] Redrying Machine Operator: Otis Sandoval M.D. Ph.D.; CLIA# [id number] Procedures Description No Information Available Medical Devices Description No Information Available Encounters Type Date Location Provider Dx Diagnosis Office Visit 08/10/2019 [facility] Khurram Rogers, M54.6 Pain in thoracic 3:[facility]p [facility] [place] [facility] M79.7 Fibromyalgia Office Visit 07/26/2019 10:00a Pulmonology And Chelsi G47.33 Obstructive sleep [facility] [place] apnea (adult) [employer] (pediatric) R53.83 Other fatigue Office Visit 07/18/2019 9:40a Rheumatology Services Ariel Olson M54.2 Cervicalgia Of [employer] M.DJessica M54.6 Pain in thoracic spine M79.7 Fibromyalgia Z79.899 Other correction (current) drug therapy Office Visit 06/01/2019 11:00a Rheumatology Services Ariel Olson M54.2 Cervicalgia Of [employer] M.DJessica M54.6 Pain in thoracic spine M79.7 Fibromyalgia G47.33 Obstructive sleep apnea (adult) (pediatric) Assessments Date Code Description Provider 09/14/2019 G47.33 Obstructive sleep apnea (adult) (pediatric) Carmita Sylvester NP 09/14/2019 R53.83 Other fatigue Carmita Sylvester NP 09/14/2019 E66.9 Obesity, unspecified Carmita Sylvester NP 08/10/2019 M54.6 Pain in thoracic spine Khurram Rogers M.D. 08/10/2019 M79.7 Fibromyalgia Khurram Rogers M.D. 07/26/2019 G47.33 Obstructive sleep apnea (adult) (pediatric) Chelsi Lindquist MD 07/26/2019 R53.83 Other fatigue Chelsi Lindquist MD 07/18/2019 M54.2 Cervicalgia Ariel Olson M.D. 07/18/2019 M54.6 Pain in thoracic spine Ariel Olson M.D. 07/18/2019 M79.7 Fibromyalgia Ariel Olson M.D. 07/18/2019 Z79.899 Other correction (current) drug therapy Ariel Olson M.D. 06/01/2019 M54.2 Cervicalgia Ariel Olson M.D. 06/01/2019 M54.6 Pain in thoracic spine Ariel Olson M.D. 06/01/2019 M79.7 Fibromyalgia Ariel Olson M.D. 06/01/2019 G47.33 Obstructive sleep apnea (adult) (pediatric) Ariel Olson M.D. Plan of Treatment Future Appointment(s):10/26/2019 9:30 am - Carmita Sylvester NP at [facility]09/19/2019 9:00 am - Ariel Olson M.D. at [facility]09/14/2019 - Carimta Sylvester NPG47.33 Obstructive sleep apnea (adult) (pediatric)New Medication:Mandibular Advancement Device - please fabricate mandibular advance device mild sleep apneaFollow up:6 weeksRecommendations:We will try adjusting the pressure on your CPAP to make it more comfortable for you. If you have difficulty with your equipment, or need to replace your mask or hoses, please contact your homecare agency, [facility] [employer] . If you have any further questions, please call the [facility] at [phone] If you have any sleepiness while driving you MUST avoid operating a vehicle or machinery. If you feel tired while driving tree puller and take a nap or switch drivers. If you know you are sleepy and need to go somewhere, arrange for a ride or use public transportation. It is very important to not risk your safety or the safety of others.R53.83 Other [id number] Obesity, unspecified Functional Status Description No Information Available Mental Status Description No Information Available Referrals Refer to Reason for Referral Status Appt Date Chelsi Lindquist MD History of known sleep apnea; please evaluate Sent 07/22 to fit appliance for sleep apnea [address] [place] [address] [phone]
--- OUTSIDE RECORDS SUMMARY | 2019-11-09 07:50 | XMS REPORT | Summary of Care ---
:1970 Author Organization [facility] Address [address] [address] Care Team Providers Name Role Phone Haylee Pina MD Primary Care Provider Reason for Referral Diagnostic Testing (Routine) Status Reason Specialty Diagnoses / Referred By Referred To Procedures Contact Contact Authorized Diagnoses Preop examination Gerald Peterson, Procedures PRE-OP 12-LEAD EKG (PAS) [address] [facility] [address] [place] [address] Reason for Visit Reason Comments New Patient ganglion cyst on right wrist x1 month Encounter Details Date Type Department Care Team Description 09/15/2019 Office Visit [facility] - Gerald Peterson, Preop examination (Primary Dx); Mary COLLINS Radial styloid tenosynovitis [address] [facility] [address] [facility] [address] [place] [address] [place], [place] [phone] [address] Allergies Active Allergy Reactions Severity Noted Date Comments Codeine Rash High 09/15/2019 Hydrocodone Hives High 09/15/2019 documented as of this encounter (statuses as of 09/15/2019) Medications Medication Sig Dispensed Refills Start Date [...] Tab MOUTH EVERY DAY FOR SUPPRESSIVE THERAPY documented as of this encounter (statuses as of 09/15/2019) Active Problems No known active problemsdocumented as of this encounter (statuses as of 2019) Social History Tobacco Use Types Packs/Day Years Used Date Never Smoker Smokeless Tobacco: Never Used Sex Assigned at Date Recorded Not on file Job Start Date Occupation Industry Not on file Not on file Not on file Travel History Travel Start Travel End No recent travel history available. documented as of this encounter Last Filed Vital Signs Vital Sign Reading Time Taken Comments Blood Pressure - - Pulse - - Temperature - - Respiratory Rate - - Oxygen Saturation - - Inhaled Oxygen Concentration - - Weight 99.8 kg (220 lb) 09/15/2019 10:02 AM EST Height 165.1 cm (5' 5") 09/15/2019 10:02 AM EST Body Mass Index 36.61 09/15/2019 10:02 AM EST documented in this encounter Progress Notes Gerald Peterson MD - 09/15/2019 10:15 AM EST Name: Isabel Mantilla : 1970 Date of service: 09/15/2019 Chief Complaint Patient presents with New Patient ganglion cyst on right wrist x1 month HPI: Isabel Mantilla is a 49-y.o. y/o female, who presents at the request of Self- Referred for evaluation. This is a patient who has a longstanding pain in her radial wrist. She also has a little bump on the radial wrist. It is interfering with her vocational and and a vocational activities. PAST MEDICAL HISTORY: She has no past medical history on file. PAST SURGICAL HISTORY: She has no past surgical history on file. MEDICATIONS: Current Outpatient Medications: albuterol HFA (VENTOLIN) [...] Take by oral route., Disp: , Rfl: cyclobenzaprine (FLEXERIL) 10 MG Oral [...] 25 mg by mouth., Disp: , Rfl: paroxetine (PAXIL) [...] smoked. She has never used smokeless tobacco. FAMILY HISTORY: family history is not on file. ROS: Nursing Notes: Key Hyman LPN 09/15/2019 10:10 AM Signed PATIENT: Isabel Mantilla : 1970 DATE OF SERVICE: 09/15/2019 Chief Complaint Patient presents with New Patient ganglion cyst on right wrist x1 month Ht 5' 5" (1.651 m) | Wt 220 lb (99.8 kg) | BMI 36.61 kg/m CONSTITUTIONAL: negative. HEENT: negative. EYES: negative. RESPIRATORY: negative. CARDIOVASCULAR: negative. GASTROINTESTINAL: negative. GENITOURINARY: negative. INTEGUMENT/BREAST: negative. HEMATOLOGIC/LYMPHATIC: negative. MUSCULOSKELETAL: Negative except right hand . NEUROLOGICAL: negative. BEHAVIORAL/PSYCH: negative. ENDOCRINE: Negative. ALLERGIC/IMMUNOLOGIC: Negative. Body mass index is 36.61 kg/m. pt aware AUTHOR: Key Hyman LPN 09/15/2019 10:09 I reviewed the above and have made changes as appropriate. Physical Exam: Vitals: Ht 5' 5" (1.651 m) Wt 220 lb (99.8 kg) BMI 36.61 kg/m2 Gen: NAD, A&Ox3 SKIN/PALPATION: Normal rugal patterns, sweat, turgor, and temperature. Cuticles , nails, nail curvature, and pulp bulk are essentially normal in appearance. No skin changes. SWELLING: none WARMTH: no warmth DEFORMITY: no gross deformity or malalignment NEUROLOGICAL EXAM: Sensation intact to light touch. VASCULAR EXAM: Capillary refill is <2 seconds. Mari's test is positive. There is pain along the first dorsal compartment. There is a 8 mm ballotable mass over the first dorsal compartment just proximal to the radial styloid. Range of motion is normal all joints are stable strength is normal Imaging & Tests: Assessment: ICD-9-CM ICD-10-CM 1. Preop examination V72.84 Z01.818 PRE-OP 12-LEAD EKG (PAS) CBC WITH DIFFERENTIAL COMPREHENSIVE METABOLIC PANEL INR (AMB POCT) 2. Radial styloid tenosynovitis 727.04 M65.4 De Quervain's tenosynovitis and ganglion cyst along the first dorsal compartment. Surgery is recommended. Surgery is recommended. The risks of surgery were discussed with the patient to include but not be limited to infection, damage to neighboring structures, such as nerves vessels, tendons, and the possibility of continued symptoms postop. The patient understands risks of surgery and wished to go ahead. Plan & Discussion: --Surgery for first dorsal compartment release Follow-up in clinic in 2 weeks for suture removal Gerald Peterson MD Hand Surgery 09/15/2019 documented in this encounter Plan of Treatment Name Type Priority Associated Diagnoses Order Schedule PRE-OP 12-LEAD EKG (PAS) EKG Routine Preop examination Expected: 09/15/2019 , Expires: 10/19/2020 CBC WITH DIFFERENTIAL Lab Routine Preop examination Expected: 09/15/2019 (Approximate), Expires: 09/15/2020 COMPREHENSIVE METABOLIC Lab Routine Preop examination Expected: 09/15/2019 PANEL (Approximate), Expires: 09/15/2020 INR (AMB POCT) POCT Routine Preop examination Ordered: 09/15/2019 Health Maintenance Due Date Last Done Comments [...] filedocumented in this encounter Visit Diagnoses Diagnosis Preop examination Preoperative examination, unspecified Radial styloid tenosynovitis documented in this encounter Insurance Payer Benefit Plan / Subscriber ID Effective Dates Phone Address Type Group [facility] xxxxxxxxx 2019-Present [place] xxxxxxxx 2019-Present Medicaid [place] documented as of this encounter
--- OUTSIDE RECORDS SUMMARY | 2019-11-09 07:50 | XMS REPORT | Summary of Care ---
:1970 Author Organization [facility] Address [address] [facility] [place] [address] Care Team Providers Name Role Phone Haylee Pina MD Primary Care Provider Reason for Visit Auth/Cert Status Reason Specialty Diagnoses / Procedures Referred By Contact Referred To Contact Procedures FL EXCIS PRIMARY GANGLION WRIST FL INCIS TENDON SHEATH,RADIAL STYLOID Encounter Details Date Type Department Care Team Description 09/27/2019 Hospital Encounter [facility] Gerald Peterson, [facility] [address] [place] [address] [address] [place] [id number] [phone] Allergies Active Allergy Reactions Severity Noted Date Comments Codeine Rash High 09/15/2019 Hydrocodone Hives High 09/15/2019 documented as of this encounter (statuses as of 09/28/2019) Medications Medication Sig Dispensed Refills Start Date [...] Active 100 MG Oral Cap mouth DAILY. documented as of this encounter (statuses as of 09/28/2019) Active Problems Problem Noted Date Radial styloid tenosynovitis 09/20/2019 Overview: Added automatically from request for surgery [id number] documented as of this encounter (statuses as of 09/28/2019) Social History Tobacco Use Types Packs/Day Years Used Date Never Smoker Smokeless Tobacco: Never Used Alcohol Use Drinks/Week oz/Week Comments Yes Alcohol [...] Sign Reading Time Taken Comments Blood Pressure 131/78 09/27/2019 12:20 PM EST Pulse 75 09/27/2019 12:20 PM EST Temperature 35.9 09/27/2019 12:20 PM EST C (96.6 F) Respiratory Rate 20 09/27/2019 12:20 PM EST Oxygen Saturation 98% 09/27/2019 12:20 PM EST Inhaled Oxygen Concentration - - Weight 102.1 kg (225 lb) 09/27/2019 10:46 AM EST Height 165.1 cm (5' 5") 09/27/2019 10:46 AM EST Body Mass Index 37.44 09/27/2019 10:46 AM EST documented in this encounter Discharge Summaries Gerald Peterson MD - 09/27/2019 10:37 AM ESTGUTHRIE SP/OP DISCHARGE NOTE [place] [id number] PATIENT: Isabel Mantilla SURGEON: Gerald Peterson MD : 1970 DATE OF SURGERY: 09/27/2019 Procedure: Procedure(s): COMPARTMENT RELEASE first dorsal EXCISION OF cyst Principle Diagnosis: Radial styloid tenosynovitis Associated Condition(s): Same as pre-op, unless otherwise indicated Mental Status: Same as pre-op, unless otherwise indicated. Condition: Stable, unless otherwise indicated Disposition of Care: Discharge to home. Follow-up with Dr. Peterson in two weeks. Other Comments: n/a Author: Gerald Peterson MD documented in this encounter Discharge Instructions InstructionsGerald Peterson MD - 09/27/2019Provider's Instructions 1. Diet: As before unless otherwise instructed. 2. Medications: Continue all medications unless otherwise instructed, contact primary physician if any questions. 3. You could have numb areas up to 24 hours, be careful with temperature until all feeling has returned to affected area. 4. As the local anesthetic wears off, you may have pain in the area, use medication prescribed. 5. Apply ice to the site today and elevate (first 24 hours) 6. Dressing: Keep dressing on for three days then remove and apply band-aid. May shower, but don't get dressing wet (keep it covered). Stitches will be removed at follow up appointment. 7. Pain Medications: ibuprofen and tylenol 8. What You need to know following Sedation/Anesthesia: ? Call 911 or have someone else call if you have trouble breathing or cannot be woken. ? Go to emergency department if you have any concerns and cannot reach physician ? Contact your healthcare provider if you have chills or fever, skin is itchy, swollen ir you have nneka, nausea/vomiting for more than 8 hours after procedure , and any questions or concerns about your condition or care. 9. Self-care: ? Have someone stay with you for 24 hours (unless you had local anesthesia) ? Rest and do quiet activities for 24 hours ? Do not drive or use dangerous machines or tools for 24 hours, no important decisions for 24 hours (unless you had local anesthesia) ? Drink liquids as directed (start with clear liquids as juice/broth, if tolerated go to regular diet) ? Do not drink alcohol or take medications that make you drowsy for 24 hours Other instructions: Please contact Dr. Polanco's office at [phone] at with any questions or concerns. Follow up appointment with surgeon: OT in two weeks Reason for Admission or Diagnosis:Radial styloid tenosynovitis Discharge Provider: Gerald Peterson MD Attending: Gerald Peterson MD Time: 10:37 If any problems occur, please contact your doctor immediately. If you can not reach your doctor, but feel that your symptoms warrant a doctor's attention, go to the emergency room that is closest to you. It is your responsibility to follow your doctor's instructions including those above. Nurse's Instructions Problems to report to your Physician: Excessive pain or discomfort Fever > 100.5 degrees Difficulty breathing Increase or smell in wound drainage *Please Return Patient Satisfaction Survey* documented in this encounter Plan of Treatment Date Type Specialty Care Team Description 10/13/2019 Office Visit Orthopedics Gerald Peterson MD [address] [place] [address] [phone] Name Type Priority Associated Diagnoses Order Schedule GLUCOSE (POCT) Automated POCT Routine X1 for 1 Occurrences starting 09/27/2019 until 09/27/2019 Health Maintenance Due Date Last Done Comments [...] this topic documented as of this encounter Procedures Procedure Name Priority Date/Time Associated Diagnosis Comments EXCISION OF Planned Trip to OR 09/27/2019 12:00 PM Radial styloid EST tenosynovitis Special Needs PAT completed over the phone with patient. Medical history and medications reviewed. Pt states Dr. Polanco aware that she is taking abx for tick borne illness. Reminded patient that we will call with time of arrival, a day prior to surgery, pt verbaliz ed location of [facility]. Discussed the need to be npo, what medications to take day of surgery, and need for motorcycle delivery driver. Discussed need to have ice on hand and over the counter pain medications. All questions answered, verbalized understanding. Labs & EKG o rdered but not yet completed. Message left to remind patient to have these completed. Patient called back, seeing PCP tomorrow will get tests done then and have them faxed here. Pre op clearance, labs, EKG on chart. COMPARTMENT RELEASE Planned Trip to [place] 09/27/2019 12:00 PM Radial styloid EST tenosynovitis Special Needs PAT completed over the phone with patient. Medical history and medications reviewed. Pt states Dr. Polanco aware that she is taking abx for tick borne illness. Reminded patient that we will call with time of arrival, a day prior to surgery, pt verbaliz ed location of [facility]. Discussed the need to be npo, what medications to take day of surgery, and need for motorcycle delivery driver. Discussed need to have ice on hand and over the counter pain medications. All questions answered, verbalized understanding. Labs & EKG o rdered but not yet completed. Message left to remind patient to have these completed. Patient called back, seeing PCP tomorrow will get tests done then and have them faxed here. Pre op clearance, labs, EKG on chart. EXTERNAL CARDIOLOGY TEST 09/27/2019 12:00 PM EST EXTERNAL SCANNED LAB 09/27/2019 12:00 PM EST documented in this encounter Results EXTERNAL SCANNED LAB (09/27/2019 12:00 PM EST) Narrative Performed At EXTERNAL CARDIOLOGY TEST (09/27/2019 12:00 PM EST) Narrative Performed At documented in this encounter Visit Diagnoses Diagnosis Radial styloid tenosynovitis documented in this encounter Administered Medications Medication Order MAR Action Action Date Dose Rate Site FentaNYL (PF) (SUBLIMAZE) injection (PF) 25 mcg 25 mcg, Intravenous, PRU Q5MIN PRN, Starting 09/27/19 at 1029, Until Tue at 1428, Mild Pain (pain scale 1-3) - IV - 1st line - if immediate effect required or patient cannot tolerate PO, 4 Recovery FentaNYL (PF) (SUBLIMAZE) injection (PF) 50 mcg 50 mcg, Intravenous Push, PRU Q5MIN PRN, 4 doses, Starting 09/27/19 at 1029 , Until Thu09/27/19 at 1511, Moderate Pain (pain scale 4-6) - IV - 1st line - if immediate effect required or patient cannot tolerate PO, Severe Pain (pain scale 7-10) - IV - 1st line - if immediate effect required or patient cannot tolerate PO, 4 Recovery HYDROmorphone (DILAUDID) syringe 0.5 mg 0.5 mg, Intravenous Push, PRU Q5MIN PRN, 4 doses, Starting 09/27/19 at 1029 , Until Thu09/27/19 at 1511, Moderate Pain (pain scale 4-6)IV 2nd line- if immediate effect required or cannot tolerate PO & still had moderate pain 2 hrs after admin of 1st line agent or did not tolerate 1st line agent, Severe Pain (pain scale 7-10)IV 2nd line - if immediate effect required or cannot tolerate PO & no still has severe pain 1 hr after admin of 1st line agent or did not tolerate 1st line agent, 4 Recovery lactated ringers IV Continued from 09/27/2019 11:42 AM 100 mL/hr Intravenous, at 100 mL/hr, Procedure EST PRU CONTINUOUS, Starting 09/27/19 at 1040, Until Thu09/27/19 at 1511, 4 Recovery, PRU, lactated ringers IV New Bag 09/27/2019 10:50 AM EST 100 mL/hr Intravenous, at 100 mL/hr, CONTINUOUS, Starting Thu09/27/19 at 1140, Until Thu09/27/19 at 1511 meperidine (DEMEROL) syringe 12.5 mg 12.5 mg, Intravenous Push, PRU Q5MIN PRN, 2 doses, Starting Thu09/27/19 at 1029 , Until Thu09/27/19 at 1511, Shivering/Chills/Rigors, 4 Recovery midazolam (VERSED) injection 0.5 mg 0.5 mg, Intravenous Push, PRU Q5MIN PRN, Starting Thu09/27/19 at 1029, Until Thu09/27/19 at 1428, Anxiety - IV - 1st line - if immediate effect required or patient cannot tolerate PO, 4 Recovery ondansetron (ZOFRAN) injection 4 mg 4 mg, Intravenous Push, PRU X1 PRN, 1 dose, Starting Thu09/27/19 at 1029, Until Thu09/27/19 at 1511, Nausea/Vomiting - IV - 1st line - If immediate effect required or patient cannot tolerate PO, 4 Recovery prochlorperazine (COMPAZINE) injection 2.5 mg 2.5 mg, Intravenous Push, PRU PRN, 2 doses, Starting Thu09/27/19 at 1029, Until Thu09/27/19 at 1511, Nausea/Vomiting - IV - 2nd line - if immediate effect required or patient cannot tolerate PO and no relief 1 hours after administration of 1st line agent, 4 Recovery documented in this encounter Insurance Payer Benefit Plan / Subscriber ID Effective Dates Phone Address Type Group [place] xxxxxxxx 2019-Present [place] documented as of this encounter
--- OUTSIDE RECORDS SUMMARY | 2019-11-09 07:50 | XMS REPORT | Continuity of Care Document ---
:1970 External Reference #:[id number] Author Name Chante Crawford Problems Active Problems Provider Date Obstructive sleep [...] Succinate Take 1 Tablet By 30tabs I10 [facility], 06/06/2019 ER Mouth Every Day Haylee Rodriguez MD 25mg Tablets ER 24HR Levocetirizine 1 by mouth every 90tabs J30.9 [facility], 05/30/2019 Dihydrochloride night Haylee Rodriguez MD 5mg Tablets Valacyclovir HCL take 1 tablet by 90tabs B00.1 [facility], 03/28/2019 500mg mouth every day for Haylee Rodriguez MD Tablets suppressive therapy Atorvastatin Calcium 1 by mouth every 90tabs E78.2 [facility], 10/04/2018 day Haylee Rodriguez MD 20mg Tablets Triamcinolone 1 sprays each 16.500gm J30.9 [facility], 08/23/2018 Acetonide nostril twice a day Haylee Rodriguez MD 55mcg/Act Aerosol Cyclobenzaprine HCL Take 1/2 - 1 Tablet 60tabs G89.4 [facility], 01/07/2018 By Mouth Up To Two Haylee Rodriguez MD 10mg Tablets Times Daily as Needed For Muscle Spasms, Maximum Daily Dose Of 2 Per Day TENS G89.4 [facility], 08/13/2015 Haylee Rodriguez MD Ventolin HFA 2 p four times a 18gm J20.9 [facility], 07/11/2014 day as needed Haylee Rodriguez MD 108(90Base) mcg/Act cough, wheeze Aerosol Epipen 2-Antonio 1 shot 1units T78.40xA [facility], 03/02/2013 intramuscular to Haylee Rodriguez MD 0.3mg/0.3ML Solution thigh in case of Auto-Inject analphylasis as needed Celebrex 1 by mouth twice a Unknown 100mg Capsules day Alprazolam prn F33.0 Unknown 0.5mg Tablets Paroxetine HCL 1.5 by mouth every F33.0 Unknown 40mg day Tablets History Medications Doxycycline 1 by mouth twice 90tabs [facility], 08/01/2019 - Monohydrate a day for 45day Haylee Rodriguez MD 09/15/2019 100mg Tablets Vitamin D3 1 by mouth every 90tabs [facility], 07/28/2019 - 5000Unit day Haylee Rodriguez MD 09/23/2019 Tablets Pregabalin 1 by mouth twice 60caps G89.4 [facility], 07/27/2019 - 25mg a day Haylee Rodriguez MD 09/23/2019 Capsules Chantix [facility]pack F17.210 [facility] Month Antonio directs. [then Haylee [...] 875-125mg Tablets Amlodipine Take 1 Capsule By 90caps Franky Herzog 03/31/2019 - Besylate/Benazepril Mouth Every Day PA 03/31/2019 Hydrochloride 5-20mg Capsules Nicotine Mini 1 po q 2hrs prn 162units F17.210 [facility], 03/28/2019 - 4mg cravings Haylee Rodriguez MD 05/30/2019 Lozenges Immunizations CPT Code Status Date Vaccine Lot # [id number] Given 06/06/2019 Influenza Vac, Quadrivalent, Split, 0.5mL Dosage, [id number] Im Use 24936 Given 05/11/2019 Tdap (Adacel) Ages 7 And Above Only [id number] Given 06/23/2018 Influenza Vac, Quadrivalent, Split, 0.5mL Dosage, [id number] Im Use 54628 Given 05/16/2016 Influenza Vac, Quadrivalent, Split, 0.5mL Dosage, [id number] Im Use [id number] Given 06/09/2014 Fluzone Trivalent Immunization [id number] Given 07/22/2011 Tdap (Adacel) Ages 7 And Above Only [id number] 71481 Given 07/18/2008 Afluria Or Fluvirin Flu Vac Intramuscular [id number] Vital Signs Date Vital Result Comment 09/23/2019 [...] Date Facility Test Result H/L Range Note Comprehensive Met 09/23/2019 [facility] Sodium 145 mmol/L 135-146 1, 2 Panel-[facility] Potassium 5.3 mmol/L High 3.5-5.2 Chloride# 105 mmol/L 97-110 3 Carbon Dioxide 30 mmol/L 24-34 Calcium 10.0 mg/dL 8.5-10.5 4 Glucose 78 mg/dL 70-105 BUN 17 mg/dL 6-26 Creatinine 0.9 mg/dL 0.5-1.4 Total Protein 7.3 g/dL 6.0-8.0 Albumin 4.9 g/dL 3.6-4.9 Globulin 2.4 g/dL 2.0-3.5 A/G Ratio 2.0 Ratio 1.0-2.2 Total Bilirubin 0.4 mg/dL 0.1-1.3 Alkaline Phosphatase 92 U/L 24-140 Alt 31 U/L 3-42 Ast 27 U/L 8-42 Anion Gap 10 mmol/L 5-15 5 Female Egfr 80 >60 6 Male Egfr 102 >60 7 CBC with Auto Diff-fcmg 09/23/2019 [facility] WBC 4.9 K/uL 4.1-11.0 8 RBC 4.40 M/uL 4.00-5.40 9 Hemoglobin 14.4 gm/dL 12.0-16.0 10 Hematocrit 42.8 % 36.0-47.0 11 MCV 97.3 fL High 80.0-95.0 12 MCH 32.8 pg High 27.0-32.0 13 MCHC 33.7 g/dL 32.0-36.0 14 RDW 12.6 % 10.5-14.5 15 PLT Count 284 K/ul 150-400 16 MPV 7.5 FL 7.1-10.7 Neutrophil 53.0 % 35.0-75.0 17 Lymphocyte 37.3 % 16.0-52.0 18 Monocyte 7.4 % 0.0-8.0 19 Eosinophil 1.7 % 0.0-5.0 Basophil 0.6 % 0.0-4.0 Abs Neutrophils 2.6 K/uL 1.8-7.7 20 Abs Lymphocytes 1.8 K/uL 1.2-4.8 21 Abs Monocytes 0.4 K/uL 0.0-0.8 22 Abs Eosinophils 0.1 K/uL 0.0-0.5 23 Abs Basophils 0.0 K/uL 0.0-0.2 24 Protime 09/23/2019 [facility] PT 9.8 s (9.2-11.9) Inr 0.95 25 Laboratory test finding 07/27/2019 [facility] Vitamin D 25 Hydroxy 32 ng/mL 30-100 26 Babesia M AB Igg Igm -RL 07/27/2019 [facility] Babesia Microti Igg < 1:16 27 Babesia Microti Igm <1:20 28 Hga Antibodies,IgG and IgM -RL 07/27/2019 [facility] Hga AB Igg <1:80 29 Hga AB Igm < 1:16 30 E Chaffeensis Abs 07/27/2019 [facility] E Chaffeensis Igg 1:128 31 E Chaffeensis Igm < 1:16 32 Z#Lyme Confirmation Abs Blood 07/27/2019 [facility] Lyme Igg B Matthieu Negative 33 Lyme Igm B Matthieu Negative 34 Comprehensive Met Panel-[facility] 06/06/2019 [facility] Sodium 145 mmol/L 135- 146 35 Potassium 4.6 mmol/L 3.5-5.2 Chloride# 106 mmol/L 97-110 36 Carbon Dioxide 28 mmol/L 24-34 Calcium 9.7 mg/dL 8.5-10.5 37 Glucose 70 mg/dL 70-105 BUN 15 mg/dL 6-26 Creatinine 0.8 mg/dL 0.5-1.4 Total Protein 6.7 g/dL 6.0-8.0 Albumin 4.4 g/dL 3.6-4.9 Globulin 2.3 g/dL 2.0-3.5 A/G Ratio 1.9 Ratio 1.0-2.2 Total Bilirubin 0.4 mg/dL 0.1-1.3 Alkaline Phosphatase 94 U/L 24-140 Alt 30 U/L 3-42 Ast 23 U/L 8-42 Anion Gap 11 mmol/L 5-15 38 Female Egfr 84 >60 39 Male Egfr 103 >60 40 Lipid 06/06/2019 [facility] Cholesterol 181 mg/dL 50-199 Triglycerides 204 mg/dL High 30-200 HDL 62 mg/dL 35-85 41 Chol/ HDL Ratio 2.9 ratio Low 3.7-5.6 VLDL 41 mg/dL High 2-29 LDL (Calc) 78 mg/dL 20-99 42 Laboratory test finding 06/06/2019 [facility] Magnesium 2.1 mg/dL 1.5-2.7 TSH 0.78 uIU/mL 0.35-4.94 HIV Combo By 06/06/2019 [facility] [employer] HIV NON REACTIVE Non Reactive Eia Combo Laboratory test 05/28/2019 [facility] Throat Culture SEE RESULT 43, 44 finding BELOW Laboratory test 05/28/2019 [facility] Rapid Strep Negative Negative 45 finding Molecular 1 REVIEWED AND IS OK FOR SURGERY, SL ELEVATED POTASSIUM PROBABLY DUE TO WAIT FROM DRAW TO LAB IN [place]. /CS 2 Updated reference range on new analyzer 3 Updated reference range on new analyzer 4 Updated reference range 01-05-2019 5 Updated Reference Range 6 Concerning GFR Guidelines for Americans: Normal function or mild renal disease, if clinically at risk: >/= 60 mL/min Moderately decreased: 30-59 Severely decreased: 15-29 Renal failure: <15 There is reduced accuracy above 60ml/min/1.73 m squared, but the numeric value may be clinically useful in the near 60 range 7 Concerning GFR Guidelines: Normal function or mild [...] drugs that are excreted by the kidneys. 8 Updated Reference Range 07/2019 9 Updated Reference Range 07/2019 10 Updated Reference Range 07/2019 11 Updated Reference Range 07/2019 12 Updated Reference Range 07/2019 13 Updated Reference Range 07/2019 14 Updated Reference range 07/2019 15 Updated Reference range 07/2019 16 Updated Reference Range 07/2019 17 Updated Reference Range 07/2019 18 Updated Reference Range 07/2019 19 Updated Reference Range 07/2019 20 Updated Reference Range 07/2019 21 Updated Reference Range 07/2019 22 Updated Reference Range 07/2019 23 Updated Reference Range 07/2019 24 Updated Reference Range 07/2019 25 SUGGESTED THERAPEUTIC RANGES USING INR FOR STABILIZED ANTICOAGULATED PATIENTS: STANDARD DOSE THERAPY INR 2.0-3.0 DVT, PE, PREVENT DVT OR EMBOLISM HIGH DOSE THERAPY INR 2.5-3.5 PREVENT EMBOLISM FROM MECHANICAL HEART VALVE Unless otherwise specified, testing performed by [employer] [facility] [address] [address] 26 Clinical Guidelines for recommended serum 25(OH)Vitamin D Deficient at less than 20 ng/mL Insufficient at 20 to <30 ng/mL Sufficient at 30-100 ng/mL Toxicity at greater than 100 ng/mL 27 < 1:16 Reference range: < 1:16 INTERPRETIVE INFORMATION: Babesia microti Antibody, IgG Less than 1:16 ........ Negative - No significant level of detectable Babesia IgG antibodies. 1:16 .................. Equivocal - Repeat testing in 10-14 days may be helpful. Greater than 1:16 ..... Positive - IgG antibodies to Babesia detected which may indicate a current or previous infection. Test developed and characteristics determined by [employer]. See Compliance Statement A: [employer]/CS 28 <1:20 Reference range: <1:20 INTERPRETIVE INFORMATION: Babesia microti Antibody, IgM Less than 1:20 ........ Negative - No significant level of detectable Babesia IgM antibodies. 1:20 .................. Equivocal - Repeat testing in 10-14 days may be helpful. Greater than 1:20 ..... Positive - IgM antibodies to Babesia detected which may indicate a current or recent infection. Test developed and characteristics determined by [employer]. See Compliance Statement A: [employer]/CS Performed by [employer], [address] [place] [id number] www.[email or web address], Ortiz Lynn MD, Lab. Director Unless otherwise specified, testing performed by [employer] [facility] [address] [address] 29 <1:80 Reference range: <1:80 INTERPRETIVE INFORMATION: A. phagocytophilum (HGA) Antibody, IgG Less than 1:80 - No significant level of IgG antibodies to A. phagocytophilum detected. Greater than or equal to 1:80 - Suggestive of a recent or past infection with A. phagocytophilum. Test developed and characteristics determined by [employer]. See Compliance Statement B: [employer]/CS 30 < 1:16 Reference range: < 1:16 INTERPRETIVE INFORMATION: A. phagocytophilum (HGA) Antibody, IgM Less than 1:16 - No significant level of IgM antibodies to A. phagocytophilum detected. Greater than or equal to 1:16 - Suggestive of a current or recent infection with A. phagocytophilum. Test developed and characteristics determined by [employer]. See Compliance Statement B: [employer] Performed by [employer], [address] [place] [id number] www.[email or web address], Ortiz Lynn MD, Lab. Director Unless otherwise specified, testing performed by [facility] [employer] [address] [address] 31 1:128 Reference range: <1:64 INTERPRETIVE INFORMATION: Ehrlichia [...] time. Test developed and characteristics determined by [employer]. See Compliance Statement B: [employer] 32 < 1:16 Reference range: < 1:16 INTERPRETIVE [...] caution. Test developed and characteristics determined by [employer]. See Compliance Statement B: [employer]/ Performed by [employer], [address] [place] [address] www.[email or web address], Ortiz Lynn MD, Lab. Director Unless otherwise specified, testing performed [place] [address] 33 Negative Reference range: Negative Band(s) present: 41 kDa (Insufficient number of bands for positive result) INTERPRETIVE INFORMATION: B. burgdorferi IgG Immunoblot For this assay, a positive result is reported when any 5 or more of the following 10 bands are present: 18, 23, 28, 30, 39, 41, 45, 58, 66, or 93 kDa. All other banding patterns are reported as negative. 34 Negative Reference range: Negative Band(s) present: NONE (Insufficient number of bands for positive result) INTERPRETIVE INFORMATION: B. burgdorferi Antibody IgM Immunoblot For this assay, a positive result is reported when any 2 or more of the following bands are present: 23, 39, or 41 kDa. All other banding patterns are reported as negative. Performed by [employer], [address] [facility] [place] [address] www.[email or web address], Ortiz Lynn MD, Lab. Director Unless otherwise specified, testing performed by [employer] [facility] [address] [address] 35 Updated reference range on new analyzer 36 Updated reference range on new analyzer 37 Updated reference range 01-05-2019 38 Updated Reference Range 39 Concerning GFR Guidelines for Americans: Normal function or mild renal disease, if clinically at risk: >/= 60 mL/min Moderately decreased: 30-59 Severely decreased: 15-29 Renal failure: <15 There is reduced accuracy above 60ml/min/1.73 m squared, but the numeric value may be clinically useful in the near 60 range 40 Concerning GFR Guidelines: Normal function or mild [...] drugs that are excreted by the kidneys. 41 Per NCEP ATP III Guidelines: Results lower than 40 mg/dL are suggestive of increased risk for coronary artery disease. Results > or = to 60 mg/dL are considered a negative risk factor. 42 Per NCEP ATP III Guidelines: Normal Population <130 Patients with medical conditions: CHD/DM Optimal: <100 Borderline high: 130-159 High: 160-189 Very high: >189 43 [id number] SEE RESULT BELOW Name: ISABEL MANTILLA Juan : [address]: Terrell العراقي MD Acct: [id number] Unit: [id number] AGE: 48 Location: [facility] Re05/28/19 SEX: F Status: DEP ER SPEC: [id number] JEFRY: 05/28/19-[address] [facility] [address]: Kamille Cruz NP REQ: [id number] RECD: 05/28/19-1410 STATUS: COMP OTHR DR: Terrell Kim MD _ SOURCE: THROAT SPDESC: ORDERED: Throat Culture COMMENTS: [id number] Procedure Result Reported Site Throat Culture Final 05/30/19- 1454 ML Organism 1 NORMAL TAMMY Quantity 3+ Throat cultures are clinically indicated to detect the presence of group A strep, arcanobacterium and yeast. In certain cases, predominating organisms will be reported. * [facility] - Main Lab . END OF REPORT DEPARTMENT OF PATHOLOGY, [address] [place] [address] Adi Padilla M.D. Director [facility] # [id number] Organizational Development Consultant: [id number] Procedures Date Code Description Status 09/23/2019 93013 Electrocardiogram Complete Completed 07/14/2016 [id number] Mammogram Completed 03/11/2011 977949964 Bone Mineral Density Test Completed 03/06/2009 [id number] Mammogram Completed Medical Devices Description No Information Available Encounters Type Date Location Provider Dx Diagnosis Office Visit 08/26/2019 Samaria Best, E66.9 Obesity, unspecified 1:00p RN MS [employer] M67.431 Ganglion, RIGHT wrist Z68.36 Body mass [...] M67.431 Ganglion, RIGHT wrist Samaria Dawson, [facility] 09/23/2019 I10 Essential (primary) hypertension Samaria Dawson, [facility]I [facility] 09/23/2019 E78.2 Mixed hyperlipidemia Samaria Dawson, [facility]I [facility] 09/23/2019 F33.0 Major depressive disorder, recurrent, Samaria Dawson, [facility] mild 09/23/2019 E66.9 Obesity, unspecified Samaria Dawson, [facility] 09/23/2019 Z68.37 Body mass index (BMI) 37.0-37.9, Samaria Dawson, [facility]I [facility] adult 09/23/2019 I10 Essential (primary) hypertension [facility] 08/26/2019 E66.9 Obesity, unspecified Samaria Dawson, [facility] 08/26/2019 M67.431 Ganglion, RIGHT wrist Samaria Dawson, [facility] 08/26/2019 Z68.36 Body mass index (BMI) 36.0-36.9, Samaria Dawson, [facility] adult 07/27/2019 I10 Essential (primary) hypertension Franky Herzog PA 07/27/2019 E78.2 Mixed hyperlipidemia SamrFranky PA 07/27/2019 F33.0 Major depressive disorder, recurrent, Franky Herzog PA mild 07/27/2019 F90.0 Attention-deficit hyperactivity Franky Herzog PA disorder, predominantly inat 07/27/2019 B00.1 Herpesviral vesicular dermatitis Franky Herzog PA 07/27/2019 E55.9 Vitamin D deficiency, unspecified Franky Herzog PA 07/27/2019 F17.210 Nicotine dependence, cigarettes, Franky Herzog PA uncomplicated 07/27/2019 M54.17 Radiculopathy, lumbosacral region BiteFranky hummel PA 07/27/2019 M54.6 Pain in thoracic spine Franky Herzog PA 07/27/2019 M54.2 Cervicalgia Franky Herzog PA 07/27/2019 M79.7 Fibromyalgia Franky Herzog PA 07/27/2019 G89.4 Chronic pain syndrome Franky Herzog PA 07/27/2019 J30.9 Allergic rhinitis, unspecified Franky Herzog PA 07/27/2019 R53.83 Other fatigue Franky Herzog PA 07/27/2019 Z68.36 Body mass index (BMI) 36.0-36.9, Franky Herzog PA adult 07/27/2019 R53.83 Other fatigue [facility] 07/27/2019 E55.9 Vitamin D deficiency, unspecified [facility] 06/20/2019 M54.17 Radiculopathy, lumbosacral region BiteFranky hummel PA 06/20/2019 M54.6 Pain in thoracic spine Franky Herzog PA 06/20/2019 M54.2 Cervicalgia Franky Herzog PA 06/20/2019 M79.7 Fibromyalgia Franky Herzog PA 06/20/2019 G89.4 Chronic pain syndrome Franky Herzog PA 06/20/2019 Z68.35 Body mass index (BMI) 35.0-35.9, Franky Herzog PA adult 06/06/2019 Z11.4 Encounter for screening for human [facility] immunodeficiency virus [HIV] 06/06/2019 I10 Essential (primary) hypertension Franky Herzog PA 06/06/2019 E78.2 Mixed hyperlipidemia [facility] 06/06/2019 E78.2 Mixed hyperlipidemia Franky Herzog PA 06/06/2019 G89.4 Chronic pain syndrome Franky Herzog PA 06/06/2019 M54.17 Radiculopathy, lumbosacral region Franky Herzog PA 06/06/2019 M54.6 Pain in thoracic spine Franky Herzog PA 06/06/2019 M79.7 Fibromyalgia Franky Herzog PA 06/06/2019 E66.9 [facility], [facility] 06/06/2019 B00.1 Herpesviral vesicular dermatitis [facility] 06/06/2019 F33.0 Major depressive disorder, recurrent, [...] 7:30 am - Franky Herzog PA at [id number] - Samaria Dawson RN MS FNPM67.431 Ganglion, RIGHT [id number] Essential ( primary) hblryqlrscuhF73.2 Mixed hxjbqenrtaarfxG86.0 Major depressive disorder, recurrent, mildE66.9 Obesity, rtbvatzkhcjN31.37 Body mass index (BMI) 37.0-37.9 , adult Functional Status Description No Information Available Mental Status Description No Information Available Referrals Refer to Dr Reason for Referral Status Appt Date [facility] GANGLION CYST RIGHT Scheduled 2019 Office WRIST, SMALL BUT PT IS SYMPTOMATIC, NUMBNESS IN THUMB AND PAIN W ROTATION AND FLEXION FIRST AVAILABLE 08/19-SCHEDULED WITH RAMESH ALANIS-NAHEED [facility] [address] [phone] Tai [place] Whole back pain, ?Fibromyalgia vs OA Patient Declined 06/27 DR. SMITH OFFICE LMOVM THAT THEY HAVE CALLED PT SEVERAL TIMES TO SCHEDULE WITH NO CALL BACK.. [address] [place] [address] [phone]
--- OUTSIDE RECORDS SUMMARY | 2019-11-09 07:50 | XMS REPORT | Continuity of Care Document ---
:1970 External Reference #:[id number] Author Name Ariel Olson M.D. (transmitted by agent of provider Kacie Burroughs) Address [address] [place] [address] Care Team Providers Name Role Phone Haylee Pina MD - Internal Care Team Information Policy Intern Medicine Problems Active Problems Provider Date Multiple [...] Use Denies Drug Use Smoking Status Reviewed: 09/19/19 Patient is a former smoker Exercise Type/Frequency Exercises sporadically Allergies, Adverse Reactions, Alerts Active Allergies Reaction Severity Comments Date Codeine 11/15/2012 Hydrocodone Itching 06/01/2019 Inactive Allergies Penicillins 11/15/2012 Sulfa Antibiotics 11/15/2012 Medications Active Medications SIG Qnty Indications Ordering Date Provider Celebrex 1 by mouth twice 30caps Ariel Olson, 09/19/2019 100mg Capsules a day as needed M.D. for pain/inflammation . avoid other nsaids Voltaren apply 2 grams 200units Ariel Olson, 09/19/2019 1% Gel twice daily as M.D. needed for pain to the right wrist region Mandibular Advancement please fabricate 1units G47.33 Carmita 09/14/2019 Device mandibular BHARATH Sylvester Device advance device mild sleep apnea Aspercreme Lidocaine apply daily to 90units Ariel [...] By Unknown 20mg Mouth Every Day Tablets Multivitamin Adult 1 by mouth every Unknown day Tablets Metoprolol Succinate 1 by mouth every Unknown ER day 25mg Tablets ER 24HR Biotin 2 caps by mouth Unknown 1mg [...] Dihydrochloride Mouth Nightly 5mg Tablets History Medications Lyrica take one capsule/tablet 45caps Ariel Olson, 07/18/2019 - 75mg daily by mouth for 1 M.D. 09/19/2019 Capsules week then 2 tabs daily ongoing Lidoderm 1 apply to affected 30unchris Olson, 06/01/2019 - 5% area 12 hours on, 12 M.D. 06/23/2019 Patches hours off to upper back Immunizations Description No Information Available Vital Signs Date Vital Result Comment 09/19/2019 8:36am Height 66 inches 5'6" Weight 228.50 lb Heart Rate 96 /min BP Systolic 123 mmHg BP Diastolic 81 mmHg Body Temperature 96.9 F O2 % BldC Oximetry 96 % BMI (Body Mass Index) 36.9 kg/m2 09/14/2019 12:54pm Height 66 inches Weight 220.00 lb Heart Rate 82 /min BP Systolic 100 mmHg BP Diastolic 64 mmHg O2 % BldC Oximetry 95 % BMI (Body Mass Index) 35.5 kg/m2 Results Test Acquired Date Facility Test Result H/L Range Note Laboratory test 08/10/2019 [facility] Blood Urea 23 mg/dL Normal 6-[address] [place] [address] [phone] Creatinine 08/10/2019 [facility] Creatinine 0.93 mg/dL Normal 0.51-0.[address] [place] [address] [phone] Egfr Non- 64.1 >60 Egfr 77.5 >60 1 Connective Tissue 06/01/2019 [facility] Anti-Nuclear Antibody 0.4 U [address] [place] [address] [phone] Cyclic Citrullinated Peptide <15.6 U 3 Interpretation See Comment 4 Laboratory test 06/01/2019 [facility] Erythrocyte Sed 29 mm/Hr High 0-[address] [place] [address] [phone] C Reactive Protein 1.82 mg/L Normal <8.01 [...] or = 3.0 U. Studies performed at [facility] indicate that positive ELOINA results <3.0 U are rarely accompanied by positive second order tests. Test Performed by: [facility] [address] [place] [address] Bullet Casting Operator: Otis Sandoval M.D. Ph.D.; CLIA# [id number] Procedures Description No Information Available Medical Devices Description No Information Available Encounters Type Date Location Provider Dx Diagnosis Office Visit 09/14/2019 [facility] Carmita G47.33 Obstructive sleep 1:00p Sleep Services Of BHARATH Sylvester apnea (adult) [facility] (pediatric) R53.83 Other fatigue E66.9 Obesity, unspecified Z68.35 Body mass index (BMI) 35.0-35.9, adult Office Visit 08/10/2019 3:00p [place] Khai Jones M54.6 Pain in Services Of Ila Rogers M.D. 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 09/19/2019 M79.7 Fibromyalgia Ariel Olson M.D. 09/19/2019 M54.2 Cervicalgia Ariel Olson M.D. 09/19/2019 M65.4 Radial styloid tenosynovitis [de Quervain] Ariel Olson M.D. 09/19/2019 M54.5 Low back pain Ariel Olson M.D. 09/14/2019 G47.33 Obstructive sleep apnea (adult) (pediatric) Carmita Sylvester, BHARATH 09/14/2019 R53.83 Other fatigue Carmita Sylvester NP 09/14/2019 E66.9 Obesity, unspecified Carmita Sylvester NP 09/14/2019 Z68.35 Body mass index (BMI) 35.0-35.9, adult Carmita Sylvester NP 08/10/2019 M54.6 Pain in thoracic spine Khurram Rogers M.D. 08/10/2019 M79.7 Fibromyalgia Khurram Rogers M.D. 07/26/2019 G47.33 Obstructive sleep apnea (adult) (pediatric) Chelsi Lindquist MD 07/26/2019 R53.83 Other fatigue Chelsi Lindquist MD 07/18/2019 M54.2 Cervicalgia Ariel Olson M.D. 07/18/2019 M54.6 Pain in thoracic spine Ariel Olson M.D. 07/18/2019 M79.7 Fibromyalgia Ariel Olson M.D. 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 06/01/2019 M54.2 Cervicalgia Ariel Olson M.D. 06/01/2019 M54.6 Pain in thoracic spine Ariel Olson M.D. 06/01/2019 M79.7 Fibromyalgia Ariel Olson M.D. 06/01/2019 G47.33 Obstructive sleep apnea (adult) (pediatric) Ariel Olson M.D. Plan of Treatment Future Appointment(s):11/14/2019 9:00 am - Ariel Olson M.D. at [facility]10/26/2019 9:30 am - Carmita Sylvester NP at Pulmonology And [facility]09/19/2019 - Ariel Olson M.D.M54.6 Pain in thoracic spineNew Therapy:Physical NncpkdlW45.7 DqcqhwqzndtgL62.2 CervicalgiaNew Xrays: MRI Cervical Spine Wo, Ordered: 09/19/19M65.4 Radial styloid tenosynovitis [de Quervain]M54.5 Low back painFollow up:Follow up in 6 to 8 weeks or sooner if needed Functional Status Description No Information Available Mental Status Description No Information Available Referrals Refer to Reason for Referral Status Appt Date Chelsi Lindquist MD History of known sleep apnea; please evaluate Sent 07/22 to fit appliance for sleep apnea [address] [place] [address] [phone]
--- OUTSIDE RECORDS SUMMARY | 2019-11-09 07:50 | XMS REPORT | Continuity of Care Document ---
:1970 External Reference #:[id number] Author Name Franky Herzog PA Address [address] [place] [address] Problems Active Problems Provider Date Obstructive sleep [...] smoker, smokes every day Smoking Status Reviewed: 10/27/19 Patient is a current smoker, smokes every day Allergies, Adverse Reactions, Alerts Active Allergies Reaction Severity Comments Date Codeine ITCHING 09/09/2011 Medications Active Medications SIG Qnty Indications Ordering Date Provider Chantix Starting take as packet 1pack F17.210 [place], 10/21/2019 Month Antonio directs. Haylee Rodriguez MD 0.5mg X 11 & 1 mg X 42 Tablets Chantix take one tablet by 60tabs F17.210 [facility], 10/21/2019 1mg Tablets mouth twice a day Haylee Rodriguez MD as directed after titration month Metoprolol Succinate take 1 tablet by 30tabs I10 [facility], 06/06/2019 ER mouth every day Haylee Rodriguez MD 25mg Tablets ER 24HR Levocetirizine 1 by mouth every 90tabs J30.9 [facility], 05/30/2019 Dihydrochloride night Haylee Rodriguez MD 5mg Tablets Valacyclovir HCL take 1 tablet by 90tabs B00.1 [facility], 03/28/2019 500mg mouth every day for Haylee Rodriguez MD Tablets suppressive therapy Atorvastatin Calcium 1 by mouth every 90tabs E78.2 [facility], 10/04/2018 day aHylee Rodriguez MD 20mg Tablets Triamcinolone 1 sprays each 16.500gm J30.9 [facility], 08/23/2018 Acetonide nostril twice a day Haylee Rodriguez MD 55mcg/Act Aerosol Cyclobenzaprine HCL Take 1/2 - 1 Tablet 60tabs G89.4 [facility], 01/07/2018 By Mouth Up To Two Haylee Rodriguez MD 10mg Tablets Times Daily as Needed For Muscle Spasms, Maximum Daily Dose Of 2 Per Day TENS G89.4 [facility], 08/13/2015 Haylee Rodriguez MD Ventolin HFA 2 p four times a 18gm J20.9 [facility], 07/11/2014 day as needed Haylee Rodriguez MD 108(90Base) mcg/Act cough, wheeze Aerosol Epipen 2-Antonio 1 shot 1units T78.40xA [facility], 03/02/2013 intramuscular to Haylee Rodriguez MD 0.3mg/0.3ML Solution thigh in case of Auto-Inject analphylasis as needed Paroxetine HCL 1.5 by mouth every F33.0 Unknown 40mg day Tablets Alprazolam prn F33.0 Unknown 0.5mg Tablets Celebrex 1 by mouth twice a Unknown 100mg Capsules day History Medications Doxycycline 1 by mouth twice a 90tabs Haylee Kim 08/01/2019 - Monohydrate day for 45day MD Michael 09/15/2019 100mg Tablets Vitamin D3 1 by mouth every 90tabs Haylee Kim 07/28/2019 - 5000Unit day MD Michael 09/23/2019 Tablets Pregabalin 1 by mouth twice a 60caps G89.4 Haylee Kim 07/27/2019 - 25mg day MD Michael 09/23/2019 Capsules Chantix Starting take as packet 1pack F17.210 Haylee Kim 05/30/2019 - Month Antonio directs. [then to MD Michael 06/29/2019 0.5mg X continuing month 11 & 1 mg X 42 pack] Tablets Chantix Continuing 1 tablet per oral 60tabs F17.210 Haylee Kim 05/30 - Month Antonio twice daily MD Michael 09/23/2019 1mg Tablets Amoxicillin/Clavula 1 by mouth every 20tabs W55.01xA Haylee Kim 12/2018 - juanpablo Potassium 12 hours MD Michael 05/21/2019 875-125mg Tablets Immunizations CPT Code Status Date Vaccine Lot # 46866 Given 06/06/2019 Influenza Vac, Quadrivalent, Split, 0.5mL Dosage, [id number] Im Use 29653 Given 05/11/2019 Tdap (Adacel) Ages 7 And Above Only [id number] 52317 Given 06/23/2018 Influenza Vac, Quadrivalent, Split, 0.5mL Dosage, [id number] Im Use 72631 Given 05/16/2016 Influenza Vac, Quadrivalent, Split, 0.5mL Dosage, [id number] Im Use [id number] Given 06/09/2014 Fluzone Trivalent Immunization [id number] 40516 Given 07/22/2011 Tdap (Adacel) Ages 7 And Above Only [id number] 75156 Given 07/18/2008 Afluria Or Fluvirin Flu Vac Intramuscular [id number] Vital Signs Date Vital Result Comment 10/27/2019 7:23am Weight 233.06 lb Heart Rate 78 /min BP Systolic 147 mmHg BP Diastolic 86 mmHg Height 65.5 inches 5'5.50" BMI (Body Mass Index) 38.2 kg/m2 09/23/2019 10:58am Weight 231.00 lb Heart Rate 70 /min BP Systolic 124 mmHg BP Diastolic 82 mmHg Height 65.5 inches 5'5.50" BMI (Body Mass Index) 37.9 kg/m2 Results Test Acquired Date Facility Test [...] uIU/mL 0.35-4.94 HIV Combo By 06/06/2019 [place] [employer] HIV NON REACTIVE Non Reactive Eia Combo Laboratory test 05/28/2019 [facility] Throat Culture SEE RESULT 43, 44 finding BELOW Laboratory test 05/28/2019 [facility] Rapid Strep Negative Negative 45 finding Molecular 1 REVIEWED AND IS OK FOR SURGERY, SL ELEVATED POTASSIUM PROBABLY DUE TO WAIT FROM DRAW TO LAB IN [place]. /CS 2 Updated reference range on new [...] VALVE Unless otherwise specified, testing performed by [facility] [place] [address] 86 Clinical Guidelines for recommended serum 25(OH)Vitamin D [...] infection. Test developed and characteristics determined by [facility]. See Compliance Statement A: [employer]/CS 28 <1:20 Reference range: <1:20 INTERPRETIVE INFORMATION: Babesia microti Antibody, IgM Less than 1:20 ........ Negative - No significant level of detectable Babesia IgM antibodies. 1:20 .................. Equivocal - Repeat testing in 10-14 days may be helpful. Greater than 1:20 ..... Positive - IgM antibodies to Babesia detected which may indicate a current or recent infection. Test developed and characteristics determined by [facility]. See Compliance Statement A: [employer]/CS Performed by [facility], [address] [place] [id number] www.[email or web address], Ortiz Lynn MD, Lab. Director Unless otherwise specified, testing performed [place] [address] 29 <1:80 Reference range: <1:80 INTERPRETIVE INFORMATION: A. phagocytophilum (HGA) Antibody, IgG Less than 1:80 - No significant level of IgG antibodies to A. phagocytophilum detected. Greater than or equal to 1:80 - Suggestive of a recent or past infection with A. phagocytophilum. Test developed and characteristics determined by [facility]. See Compliance Statement B: [facility] 30 < 1:16 Reference range: < 1:16 INTERPRETIVE INFORMATION: A. phagocytophilum (HGA) Antibody, IgM Less than 1:16 - No significant level of IgM antibodies to A. phagocytophilum detected. Greater than or equal to 1:16 - Suggestive of a current or recent infection with A. phagocytophilum. Test developed and characteristics determined by [facility]. See Compliance Statement B: [facility] Performed by [facility], [address] [place] [id number] www.[email or web address], Ortiz Lynn MD, Lab. Director Unless otherwise specified, testing performed by [facility] [address] [place] [address] 31 1:128 Reference range: <1:64 INTERPRETIVE INFORMATION: [...] time. Test developed and characteristics determined by [facility]. See Compliance Statement B: [facility] 32 < 1:16 Reference range: < 1:16 [...] caution. Test developed and characteristics determined by [facility]. See Compliance Statement B: [facility]/ Performed by [facility], [address] [facility] [place] [address] www.[email or web address], Ortiz Lynn MD, Lab. Director Unless otherwise specified, testing performed by [facility] [place] [address] 33 Negative Reference range: Negative Band(s) present: [...] patterns are reported as negative. Performed by [facility], [address] [facility] [address] www.[email or web address], Ortiz Lynn MD, Lab. Director Unless otherwise specified, testing performed by [facility] [place] [address] 35 Updated reference range on new analyzer [...] 130-159 High: 160-189 Very high: >189 43 [id number] SEE RESULT BELOW Name: ISABEL MANTILLA Juan : [address]: Terrell العراقي MD Acct: [id number] Unit: [id number] AGE: 48 Location: [facility] Re05/28/19 SEX: F Status: DEP ER SPEC: [id number] JEFRY: 05/28/19-[address]: Kamille Cruz NP REQ: [id number] RECD: 05/28/19141 STATUS: [facility] DR: Terrell Kim MD _ SOURCE: THROAT SPDES: ORDERED: Throat Culture COMMENTS: [id number] Procedure Result Reported Site Throat Culture Final 05/30/19- 1454 ML Organism 1 NORMAL TAMMY Quantity 3+ Throat cultures are clinically indicated to detect the presence of group A strep, arcanobacterium and yeast. In certain cases, predominating organisms will be reported. * ML - Main Lab . END OF REPORT DEPARTMENT OF PATHOLOGY, [address] [place] [address] Adi Padilla M.D. Director [facility] # [id number] [address] [employer] Bus Driver: [id number] Procedures Date Code Description Status 09/23/2019 07490 Electrocardiogram Complete Completed 07/14/2016 90682180 Mammogram Completed 03/11/2011 988562143 Bone Mineral Density Test Completed 03/06/2009 [id number] Mammogram Completed Medical Devices Description No Information Available Encounters Type Date Location Provider Dx Diagnosis Office Visit 09/23/2019 Samaria Best, M67.431 Ganglion, RIGHT 10:40a RN MS CUSTOMER EXPERT wrist I10 Essential (primary) hypertension E78.2 Mixed hyperlipidemia F33.0 Major depressive disorder, recurrent, mild E66.9 Obesity, unspecified Z01.818 Encounter for other preprocedural examination Z68.37 Body mass index (BMI) 37.0-37.9, adult Office Visit 08/26/2019 1:00p Samaria Best, E66.9 Obesity, unspecified RN MS CUSTOMER EXPERT M67.431 Ganglion, RIGHT wrist Z68.36 Body mass [...] Z68.34 Body mass index (BMI) 34.0-34.9, adult Assessments Date Code Description Provider 10/27/2019 I10 Essential (primary) hypertension Franky Herzog PA 10/27/2019 E78.2 Mixed hyperlipidemia Franky Herzog PA 10/27/2019 F17.210 Nicotine dependence, cigarettes, Franky Herzog PA uncomplicated 10/27/2019 F33.0 Major depressive disorder, recurrent, Franky Herzog PA mild 10/27/2019 F90.0 Attention-deficit hyperactivity Franky Herzog PA disorder, predominantly inat 10/27/2019 B00.1 Herpesviral vesicular dermatitis Franky Herzog PA 10/27/2019 E55.9 Vitamin D deficiency, unspecified Franky Herzog PA 10/27/2019 M67.431 Ganglion, RIGHT wrist Franky Herzog PA 10/27/2019 A77.41 Human ehrlichiosis Franky Herzog PA 10/27/2019 M54.17 Radiculopathy, lumbosacral region Franky Herzog PA 10/27/2019 M54.6 Pain in thoracic spine Franky Herzog PA 10/27/2019 M54.2 Cervicalgia Franky Herzog PA 10/27/2019 M79.7 Fibromyalgia Franky Herzog PA 10/27/2019 G89.4 Chronic pain syndrome Franky Herzog PA 10/27/2019 E66.9 Obesity, unspecified Franky Herzog PA 10/27/2019 M48.02 Spinal stenosis, cervical region Franky Herzog PA 10/27/2019 Z68.38 Body mass index (BMI) 38.0-38.9, Franky Herzog PA adult 09/23/2019 M67.431 Ganglion, RIGHT wrist Samaria Dawson, [facility] 09/23/2019 I10 Essential (primary) hypertension Samaria Dawson, [facility] 09/23/2019 E78.2 Mixed hyperlipidemia Samaria Dawson, [facility] 09/23/2019 F33.0 Major depressive disorder, recurrent, Samaria Dawson, [facility] mild 09/23/2019 E66.9 Obesity, unspecified Samaria Dawson, [facility] 09/23/2019 Z01.818 Encounter for other preprocedural Samaria Dawson, [facility] examination 09/23/2019 I10 Essential (primary) hypertension [facility] 09/23/2019 Z68.37 Body mass index (BMI) 37.0-37.9, Samaria Dawson RN [facility] adult 08/26/2019 E66.9 Obesity, unspecified Samaria Dawson, RN [facility] 08/26/2019 M67.431 Ganglion, RIGHT wrist Samaria Dawson, [facility] 08/26/2019 Z68.36 Body mass index (BMI) 36.0-36.9, Samaria Dawson, [facility] adult 07/27/2019 I10 Essential (primary) hypertension Franky [...] PA uncomplicated 07/27/2019 M54.17 Radiculopathy, lumbosacral region Franky Herzog PA 07/27/2019 M54.6 Pain in thoracic spine Franky Herzog PA 07/27/2019 M54.2 Cervicalgia BiterFranky PA 07/27/2019 M79.7 Fibromyalgia BiterFranky PA 07/27/2019 G89.4 Chronic pain syndrome BiterFranky PA 07/27/2019 J30.9 Allergic rhinitis, unspecified BiterFranky PA 07/27/2019 R53.83 Other fatigue BiterFranky PA 07/27/2019 Z68.36 Body mass index (BMI) 36.0-36.9, SamrFranky PA adult 07/27/2019 R53.83 Other fatigue [facility] 07/27/2019 E55.9 Vitamin D deficiency, unspecified [facility] 06/20/2019 M54.17 Radiculopathy, lumbosacral region BiterFranky PA 06/20/2019 M54.6 Pain in thoracic spine BiterFranky PA 06/20/2019 M54.2 Cervicalgia SamrFranky PA 06/20/2019 M79.7 Fibromyalgia BiterFranky PA 06/20/2019 G89.4 Chronic pain syndrome BiterFranky PA 06/20/2019 Z68.35 Body mass index (BMI) 35.0-35.9, SamrFranky PA adult 06/06/2019 Z11.4 Encounter for screening for human [facility] immunodeficiency virus [HIV] 06/06/2019 I10 Essential (primary) hypertension SamrFranky PA 06/06/2019 E78.2 Mixed hyperlipidemia [facility] 06/06/2019 E78.2 Mixed hyperlipidemia SamrFranky PA 06/06/2019 G89.4 Chronic pain syndrome BiterFranky PA 06/06/2019 M54.17 Radiculopathy, lumbosacral region BiterFranky PA 06/06/2019 M54.6 Pain in thoracic spine SamrFranky PA 06/06/2019 M79.7 Fibromyalgia SamrFranky PA 06/06/2019 E66.9 Obesity, unspecified [facility] 06/06/2019 B00.1 Herpesviral vesicular dermatitis [facility] 06/06/2019 F33.0 Major depressive disorder, recurrent, BiteFranky hummel PA mild 06/06/2019 F90.0 Attention-deficit hyperactivity Franky [...] index (BMI) 34.0-34.9, Franky Herzog PA adult Plan of Treatment 10/27/2019 - Franky Herzog PAI10 Essential (primary) hypertensionComments: stable with the Metoprolol. no changes nowE78.2 Mixed hyperlipidemiaComments: started treatment 05/20194261N71.210 Nicotine dependence, cigarettes, uncomplicatedComments:stating Chantix again b/c only took for 6weeks and relapsed. discuss 1hpnQ22.0 Major depressive disorder, recurrent, mildComments :stable on paxil. sees KsrtvL91.0 Attention-deficit hyperactivity disorder, predominantly inatComments:Med was by Psych with "rarely take it." Stopped by Psych.B00.1 Herpesviral vesicular dermatitisComments:h/o recurrent disease and take meds prn. change to q day dosing with cheated and gone.E55.9 Vitamin D deficiency, unspecifiedComments:Vit D NL 08/2018M67.431 Ganglion, RIGHT wristComments:s/p surgery and doing well.A77.41 Human ehrlichiosisComments :tx w/ Doxy x45d [07/2019] but not helpful to reduce painM79.7 FibromyalgiaComments:see kfdqvS23.2 CervicalgiaComments:MRI done 06/2014 and 2010. see vwemnJ13.6 Pain in thoracic spineComments:see lxtgvJ07.17 Radiculopathy, lumbosacral regionNew Xrays:MRI, Spinal Canal, Lumbar, No Contr, Ordered: 10/27/19Comments:Not using Meloxicam or Naprosyn. using the Motrin 800 1-2times per day. MRI done 01/2018, 06/2014, 05/2011. UPDATE 2019:see aboveReferral:Ever Gomez MD, Surgery,HubkfapoobacH95.4 Chronic pain syndromeComments:off chronic meds UPDATE 06/06:saw rheum and ESR elevated. all else okay. to f/u 07/2019.UPDATE 06/20/2019:due to waxing and waning back pain, she has been unable to maintain steady employment. per Rheumatology, this is consistent with OA throughout the spine and fibromyalgia. We are working with Neurology, Rheumatology, and Chiropractics to optimize her pain and dysfxn. UPDATE 07/27:Rheum started pregabalin. troubles in the morning. titrating up the dosing. will increase to bid and keep going.also never tested for tick infections. will r/o to cross off treatable causes. UPDATE 10/27/2019:h/o ?ischemia in Luis A with Brain MRI. Rheum just did MRI C- Spine with severe to mod foraminal narrowing at 3levels. Neuro []did MRI T- spine with "no findings." Plan for MRI Brain soon with Dr Olson. L-spine MRI last done 01/2018 but now with vaginal/perineal numbness if lying on belly and weakness/numb shakiness when standing from seated position. -- will MRI L- Spine and refer to neurosurg.Follow up:f/u 3-2qyincZ10.9 Obesity, kmeuvkmklhiN55.02 Spinal stenosis, cervical regionComments:10/10/2019 - MRI/ CervicalReferral:Ever Gomez MD, Surgery,FdeyfkszsvkrH90.38 Body mass index (BMI) 38.0-38.9, adult Functional Status Description No Information Available Mental Status Description No Information Available Referrals Refer to Dr Reason for Referral Status Appt Date Ever Gomez MD Created [address] [facility] [address] [place] [address] [phone] [facility] FOR GANGLION CYST Scheduled 2019 RIGHT WRIST, SMALL BUT PT IS SYMPTOMATIC, NUMBNESS IN THUMB AND PAIN W ROTATION AND FLEXION FIRST AVAILABLE 08/19-SCHEDULED WITH YOHANA AND MADE ANNABELLE-AA [address] [facility] [address] [phone] Tai Smith DC Whole back pain, ?Fibromyalgia vs OA Patient Declined 06/27 DR. SMITH OFFICE LMOVM THAT THEY HAVE CALLED PT SEVERAL TIMES TO SCHEDULE WITH NO CALL BACK.. [address] [place] [address] [phone]
[2019-11-09 08:00] VITALS: BP 122/71
--- NOTE | 2019-11-09 08:47 | UC ---
Shoulder Pain HPI - HPI Summary HPI Summary: PATIENT ARRIVES COMPLAINING OF WORSENING RIGHT SHOULDER PAIN AFTER HAVING AN MRI BRAIN DONE THIS MORNING. STATES SHE HAS HAD THIS PAIN FOR ABOUT A MONTH. IT STARTED AFTER HAVING AN MRI OF HER C-SPINE ON 10/10/2019 FOR NECK PAIN. SHE DENIES ANY ACUTE TRAUMA OR INJURY. DOES NOT DO ANY HEAVY LIFTING OR REPETITIVE OVERHEAD MOVEMENTS. HAS KNOWN DEGENERATIVE DISC DISEASE AND OSTEOARTHRITIS. 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 HAS A FOLLOW-UP APPOINTMENT COMING UP IN 2 DAYS AT [facility] IN [place]. - History of Current Complaint Chief Complaint: UCUpperExtremity Stated Complaint: RT SHOULDER PAIN Time Seen by Provider: 11/09/19 08:01 Hx Obtained From: Patient Hx Last Menstrual Period: SEVERAL YEARS Onset/Duration: Gradual Onset, Lasting Weeks, Still Present Timing: Constant Severity Initially: Moderate Severity Currently: Moderate Location Of Pain: Is Discrete @ - RIGHT SHOULDER Pain Intensity: 7 Pain Scale Used: 0-10 Numeric Character: Sharp Aggravating Factor(s): Movement Alleviating Factor(s): Rest Associated Signs And Symptoms: Positive: Negative Related History: Dominant Hand Right - Allergies/Home Medications Allergies/Adverse Reactions: Allergies Allergy/AdvReac Type Severity Reaction Status Date / Time codeine Allergy Itching Verified 11/09/19 07:51 Home Medications: Home Medications Cholecalciferol (Vitamin D3) [Vitamin D3] 5,000 unit PO DAILY 10/18/12 [History Confirmed 05/28/19] Multivitamin [Multivitamins] 1 cap PO DAILY 08/07/14 [History Confirmed 05/28/19 ] PARoxetine HCL TAB* [Paxil TAB*] 3 tab PO DAILY 07/08/17 [History Confirmed ] ValACYclovir (*) [Valtrex 500 mg (*)] 500 mg PO DAILY 07/08/17 [History Confirmed 05/28/19] Acetaminophen [Tylenol] 1,000 mg PO Q4HR PRN 09/06/17 [History Confirmed ] Ibuprofen [Ibuprofen 200 MG] 800 mg PO BID 09/06/17 [History Confirmed 05/28/19] Atorvastatin* [Lipitor 20 MG*] 1 tab PO DAILY 05/28/19 [History Confirmed ] Cetirizine* [ZyrTEC 10 MG TAB*] 10 mg PO DAILY #15 tab 05/28/19 [Rx] Fluticasone NASAL SPRAY 50MCG* [Flonase NASAL SPRAY 50MCG*] 2 spray BOTH NARES DAILY #1 btl 05/28/19 [Rx] PMH/Surg Hx/FS Hx/Imm Hx Respiratory History: Asthma - Surgical History Surgical History: Yes Surgery Procedure, Year, and Place: T&A; Hysterectomy- d/t HPV. appendectomy; EAR TUBES November 2012. gastric sleeve. 09/27/2019 GANGLION CYST REMOVED RT WRIST - Family History Known Family History: Positive: Other - Asthma (daughter) - Social History Alcohol Use: Occasionally Substance Use Type: None Smoking Status (MU): Light Every Day Tobacco Smoker Type: Cigarettes Amount Used/How Often: 1/4 ppd Have You Smoked in the Last Year: Yes - Immunization History Most Recent Influenza Vaccination: delined Most Recent Tetanus Shot: UTD Review of Systems All Other Systems Reviewed And Are Negative: Yes Constitutional: Positive: Negative Skin: Positive: Negative Respiratory: Positive: Negative Cardiovascular: Positive: Negative Gastrointestinal: Positive: Negative Musculoskeletal: Positive: Arthralgia. Negative: Decreased ROM, Edema, Myalgia Physical Exam Triage Information Reviewed: Yes Appearance: Well-Appearing, No Pain Distress, Well-Nourished Vital Signs: Initial Vital Signs Temp 98.3 F 11/09/19 07:53 Pulse 72 11/09/19 07:53 Resp 18 11/09/19 07:53 BP 122/71 11/09/19 07:53 Pulse Ox 97 11/09/19 07:53 Vital Signs Reviewed: Yes Eyes: Positive: Conjunctiva Clear ENT: Positive: Hearing grossly normal Neck: Positive: Supple Respiratory: Positive: No respiratory distress, No accessory muscle use Cardiovascular: Positive: Pulses Normal Abdomen Description: Positive: Soft Musculoskeletal: Positive: ROM Intact, No Edema, Other: - DIFFUSELY TENDER OVER RIGHT SHOULDER. NO FOCAL BONY OR SOFT TISSUE TENDERNESS Neurological: Positive: Alert Psychological: Positive: Age Appropriate Behavior Skin: Negative: Rashes Diagnostics - Radiology RIGHT SHOULDER XRAYS Radiology Interpretation Completed By: Radiologist Summary of Radiographic Findings: OSTEOARTHRITIS. NO ACUTE OSSEOUS INJURY. IF SYMPTOMS PERSIST, RECOMMEND REPEAT IMAGING. Shoulder Course/Dx - Course Course Of Treatment: X-RAY OF THE RIGHT SHOULDER SHOWS OSTEOARTHRITIS BUT NO ACUTE BONY INJURY. PATIENT HAS AN APPOINTMENT AT [facility] IN 2 DAYS TO FOLLOW-UP ON HER SPINE. SHE MAY CHOOSE TO FOLLOW-UP WITH [facility] FOR HER RIGHT SHOULDER PAIN WELL. REFERRAL TO [facility] ALSO PROVIDED IF PATIENT PREFERS TO STAY LOCAL. SLING FOR COMFORT. OTC MEDICATIONS NEEDED FOR PAIN. PATIENT DECLINES PHYSICAL THERAPY REFERRAL AT PRESENT. - Differential Dx/Diagnosis Provider Diagnosis: Right shoulder pain Discharge ED - Sign-Out/Discharge Documenting (check all that apply): Patient Departure All imaging exams completed and their final reports reviewed: Yes - Discharge Plan Condition: Stable Disposition: HOME Patient Education Materials: Shoulder Pain (ED) Referrals: Lobo Magdaleno MD [Medical Doctor] - Haylee Kim MD [Primary Care Provider] - If Needed Additional Instructions: XRAY OF YOUR RIGHT SHOULDER TODAY SHOWS OSTEOARTHRITIS BUT IS NEGATIVE FOR ANY ACUTE PATHOLOGY. REST, OTC MEDS NEEDED. SLING FOR COMFORT. IF YOU DO NOT IMPROVE OVER THE NEXT COUPLE OF WEEKS FOLLOW-UP WITH YOUR PCP OR ORTHO. YOU MAY BENEFIT FROM REPEAT OR MORE ADVANCED IMAGING AT THAT TIME. YOU CAN ALSO MENTION THIS AT YOUR UPCOMING APPOINTMENT IN 2 DAYS AT [facility]. YOUR X- RAY HAS BEEN PROVIDED TO YOU ON A CD. BE SURE TO GO THROUGH SLOW RANGE OF MOTION AND STRETCHING EXERCISES DAILY YOU ARE ABLE TO PREVENT STIFFENING UP AND MAKING THE DISCOMFORT WORSE. - Billing Disposition and Condition Condition: STABLE Disposition: Home
== END 2019-11-09 09:30 | disposition home or self-care (01) ==
LOC: UCEAST 07:45
DX: M25.511 Pain in right shoulder (principal); M19.011 Primary osteoarthritis, right shoulder; J45.909 Unspecified asthma, uncomplicated; F17.210 Nicotine dependence, cigarettes, uncomplicated; Z88.5 Allergy status to narcotic agent; Z79.899 Other long term (current) drug therapy; Z79.51 Long term (current) use of inhaled steroids
CPT/HCPCS: 99212; G0463